=== PATIENT | male | born 1965 | race Caucasian/White ===

== ENCOUNTER 2022-02-06 08:37 | Inpatient (IN) | payer MEDICARE, MEDICAID ==
[~2022-02-06] VITALS: Ht 175.3 cm; Wt 82.6 kg
[~2022-02-06 08:37] MED LIST: CLAR10 PO; FLUO40CA8 PO; RISP2 PO
[2022-02-06] MEDS ORDERED: PIPERACILLIN/TAZ 3.375G PREMIX 50 ML IV ONE (08:45)
[2022-02-06] MEDS ORDERED: VANCOMYCIN 1G PREMIX 200 ML IV ONE (08:45)
[2022-02-06] MEDS ORDERED: SODIUM CHLORIDE 0.9% 1000ML BAG (SEPSIS BOLUS) IV ONE (08:45)
[2022-02-06] MEDS ORDERED: DILTIAZEM HCL 60MG TABLET PO ONE (09:15)
[2022-02-06] MEDS ORDERED: DILTIAZEM HCL 5MG/ML 5ML VIAL IV ONE (09:15)
[2022-02-06 09:21] LABS: BASOPHILS % 0.4 % (0.0-2.0); EOSINOPHILS % 0.1 % (0.0-5.0); HEMATOCRIT. 53.9 % (42.0-52.0); HEMOGLOBIN. 16.6 g/dL (14.0-18.0); LYMPHOCYTES % 10.5 % (20.0-50.0); MEAN CORPUSCULAR HEMOGLOBIN 27.7 pg (28.0-32.0); MEAN CORPUSCULAR VOLUME 90.1 fL (80.0-94.0); PLATELET 148 x1000/uL (130-400); RED BLOOD CELL COUNT 5.98 mill/uL (4.7-6.1); RED CELL DISTRIBUTION WIDTH 16.3 % (11.6-14.6)
[2022-02-06 09:31] LABS: INR 1.7; PROTHROMBIN TIME 17.7 sec (9.6-11.0)
[2022-02-06] MEDS ORDERED: AMIODARONE HCL 50MG/ML 3ML VIAL IV ONE (09:45)
[2022-02-06 09:49] LABS: CHLORIDE 101 mEq/L (98-107)
[2022-02-06 10:27] LABS: CLARITY URINE TURBID (CLEAR); COLOR URINE DARK YELLOW (YELLOW); KETONES URINE TRACE (NEGATIVE); LEUKOCYTE ESTERASE URINE TRACE (NEGATIVE); NITRITE URINE NEGATIVE (NEGATIVE); OCCULT BLOOD URINE NEGATIVE (NEGATIVE); PH URINE 5.5 (4.5-8.0); PROTEIN URINE 2+ (NEGATIVE); SPECIFIC GRAVITY URINE 1.033 (1.005-1.030)
[2022-02-06] MEDS ORDERED: DILTIAZEM HCL 125 MG in DEXT 5% WATER 100 ML IV ONE (10:30)
[2022-02-06] MEDS ORDERED: DILTIAZEM HCL 125MG in DEXTROSE 5% WATER 125ML IV PRN (10:45)
[2022-02-06] MEDS ORDERED: IOHEXOL-350 100 ML BOTTLE ONE (15:22)
[2022-02-06] MEDS ORDERED: ACETAMINOPHEN 325MG TABLET PO PRN (15:45)
[2022-02-06] MEDS ORDERED: DIGOXIN 500MCG/2ML AMP IV NR (15:45)
[2022-02-06] MEDS ORDERED: CLONIDINE 0.1MG TABLET PO PRN (15:45)
[2022-02-06] MEDS ORDERED: ONDANSETRON HCL 4MG/2ML INJ IV PRN (15:45)
[2022-02-06] MEDS ORDERED: DILTIAZEM HCL 125 MG in DEXT 5% WATER 100 ML IV PRN (16:00)
[2022-02-06] MEDS ORDERED: HEPARIN 80 UNITS/KG BOLUS IV NR (16:15)
[2022-02-06] MEDS ORDERED: HEPARIN 25,000 UNITS PREMIX 250 ML IV SCH (17:00)
[2022-02-06 17:24] LABS: BG BASE EXCESS 2.5 mmol/L (-2.0-2.0); BG CARBOXYHEMOGLOBIN 1.9 % (0.5-1.5); BG DEOXYHEMOGLOBIN 2.7 % (0.0-5.0); BG FRACTION INSPIRED OXYGEN 100; BG HCO3 ACT 29.6 mmol/L (22.0-26.0); BG METHEMOGLOBIN 0.4 % (0.0-1.5); BG OXYGEN SATURATION 97.2 % (92.0-98.5); BG PCO2 55.3 mmHg (35.0-45.0); BG PH 7.347 (7.350-7.450); BG SAMPLE SITE RIGHT RADIAL; BG TOTAL HEMOGLOBIN 16.4 g/dL (12.0-18.0); BG VENT MODE VENT - AC
[2022-02-06] MEDS ORDERED: LORAZEPAM 2MG/ML CPJ IV NR (18:30)
[2022-02-06] MEDS ORDERED: PROPOFOL 10MG/ML 100ML 100 ML IV PRN (18:38)
[2022-02-06] MEDS ORDERED: ZOLPIDEM TARTRATE 5MG TABLET PO PRN (20:00)
[2022-02-06] MEDS: FENTANYL 2500MCG/250ML PMX 250 ML IV PRN (20:35)
[2022-02-06] MEDS: METOPROLOL TARTRATE 50MG TABLET PO SCH (21:00)
[2022-02-06] MEDS: RISPERIDONE 1MG TABLET PO SCH (21:00)
[2022-02-06] MEDS: FLUOXETINE HCL 20MG CAPSULE PO SCH (21:00)
[2022-02-06] MEDS: SODIUM CHLORIDE 0.9% INJ 3ML FLUSH IVF SCH (21:53)
[2022-02-07] VITALS (64 sets, daily range): BP systolic 68–135; BP diastolic 37–100
[2022-02-07] MEDS ORDERED: HEPARIN BOLUS PRN aPTT <36 IV
[2022-02-07] MEDS ORDERED: HEPARIN BOLUS PRN aPTT 37-44 IV
[2022-02-07] MEDS: ENOXAPARIN 100MG/ML SYR SUBCUT SCH ×2 (01:23→14:11)
[2022-02-07 04:59] LABS: BASOPHILS % 0.1 % (0.0-2.0); EOSINOPHILS % 0.2 % (0.0-5.0); HEMATOCRIT. 45.9 % (42.0-52.0); HEMOGLOBIN. 14.8 g/dL (14.0-18.0); LYMPHOCYTES % 9.9 % (20.0-50.0); MEAN CORPUSCULAR HEMOGLOBIN 28.5 pg (28.0-32.0); MEAN CORPUSCULAR VOLUME 88.1 fL (80.0-94.0); MEAN PLATELET VOLUME 9.4 fl (7.4-10.4); MONOCYTES % 8.5 % (2.0-8.0); NEUTROPHILS % 81.3 % (40.0-76.0); PLATELET 96 x1000/uL (130-400); RED BLOOD CELL COUNT 5.21 mill/uL (4.7-6.1); RED CELL DISTRIBUTION WIDTH 15.3 % (11.6-14.6)
[2022-02-07 05:05] LABS: CHLORIDE 101 mEq/L (98-107)
[2022-02-07 05:30] LABS: T4 FREE 1.22 ng/dL (0.76-1.46)
[2022-02-07] MEDS: SODIUM CHLORIDE 0.9% INJ 3ML FLUSH IVF SCH ×3 (06:03→22:00)
[2022-02-07] MEDS: FENTANYL 2500MCG/250ML PMX 250 ML IV PRN ×2 (08:19→19:24)
[2022-02-07 09:29] LABS: BG BASE EXCESS 5.6 mmol/L (-2.0-2.0); BG CARBOXYHEMOGLOBIN 1.1 % (0.5-1.5); BG DEOXYHEMOGLOBIN 0.8 % (0.0-5.0); BG FRACTION INSPIRED OXYGEN 100; BG HCO3 ACT 30.2 mmol/L (22.0-26.0); BG METHEMOGLOBIN 0.4 % (0.0-1.5); BG OXYGEN SATURATION 99.2 % (92.0-98.5); BG OXYHEMOGLOBIN 97.7 % (94.0-97.0); BG PCO2 43.7 mmHg (35.0-45.0); BG PH 7.458 (7.350-7.450); BG PO2 142.3 mmHg (75.0-100.0); BG SAMPLE SITE RIGHT RADIAL; BG TOTAL HEMOGLOBIN 15.2 g/dL (12.0-18.0); BG VENT MODE VENT - AC
[2022-02-07] MEDS: NICOTINE 21MG PATCH TD SCH (10:13)
[2022-02-07] MEDS: METOPROLOL TARTRATE 50MG TABLET PO SCH ×2 (10:14→21:00)
[2022-02-07] MEDS: PANTOPRAZOLE SODIUM 40 MG/VIAL IV SCH (10:16)
[2022-02-07] MEDS: LEVOFLOXACIN 500MG PREMIX 100 ML IV SCH (14:04)
[2022-02-07] MEDS: METRONIDAZOLE 500MG TABLET PO SCH ×2 (14:10→23:11)
[2022-02-07 15:10] LABS: HEPATITIS B SURFACE AB 28.6 mIU/mL
[2022-02-07 15:20] LABS: HEPATITIS B SURFACE ANTIGEN NEGATIVE
[2022-02-07] MEDS: FLUOXETINE HCL 20MG CAPSULE PO SCH (21:00)
[2022-02-07] MEDS: RISPERIDONE 1MG TABLET PO SCH (21:00)
[2022-02-07] MEDS: PHENYLEPHRINE 100 MG in DEXT 5% WATER 240 ML IV PRN (21:34)
[2022-02-07 21:46] LABS: BG BASE EXCESS 4.5 mmol/L (-2.0-2.0); BG CARBOXYHEMOGLOBIN 0.9 % (0.5-1.5); BG DEOXYHEMOGLOBIN 17.9 % (0.0-5.0); BG FRACTION INSPIRED OXYGEN 70; BG HCO3 ACT 30.9 mmol/L (22.0-26.0); BG METHEMOGLOBIN 0.4 % (0.0-1.5); BG OXYGEN SATURATION 81.9 % (92.0-98.5); BG OXYHEMOGLOBIN 80.8 % (94.0-97.0); BG PCO2 52.5 mmHg (35.0-45.0); BG PH 7.388 (7.350-7.450); BG PO2 47.3 mmHg (75.0-100.0); BG SAMPLE SITE RIGHT RADIAL; BG TOTAL HEMOGLOBIN 15.4 g/dL (12.0-18.0); BG VENT MODE VENT - AC
[2022-02-07 23:13] LABS: BG BASE EXCESS 2.5 mmol/L (-2.0-2.0); BG FRACTION INSPIRED OXYGEN 70; BG HCO3 ACT 28.2 mmol/L (22.0-26.0); BG METHEMOGLOBIN 0.4 % (0.0-1.5); BG OXYHEMOGLOBIN 97.6 % (94.0-97.0); BG PCO2 46.8 mmHg (35.0-45.0); BG PH 7.398 (7.350-7.450); BG PO2 143.5 mmHg (75.0-100.0); BG SAMPLE SITE RIGHT RADIAL; BG TOTAL HEMOGLOBIN 17.1 g/dL (12.0-18.0); BG VENT MODE VENT - AC
[2022-02-08] VITALS (96 sets, daily range): BP systolic 78–129; BP diastolic 40–92
[2022-02-08] MEDS: ENOXAPARIN 100MG/ML SYR SUBCUT SCH ×2 (01:08→13:01)
[2022-02-08] MEDS: PROPOFOL 10MG/ML 100ML 100 ML IV PRN ×2 (04:00→13:03)
[2022-02-08 05:20] LABS: BASOPHILS % 0.1 % (0.0-2.0); EOSINOPHILS % 0.4 % (0.0-5.0); HEMATOCRIT. 48.3 % (42.0-52.0); HEMOGLOBIN. 15.5 g/dL (14.0-18.0); LYMPHOCYTES % 9.1 % (20.0-50.0); MEAN CORPUSCULAR HEMOGLOBIN 27.9 pg (28.0-32.0); MEAN PLATELET VOLUME 10.4 fl (7.4-10.4); MONOCYTES % 7.2 % (2.0-8.0); NEUTROPHILS % 83.2 % (40.0-76.0); PLATELET 118 x1000/uL (130-400); RED BLOOD CELL COUNT 5.55 mill/uL (4.7-6.1); RED CELL DISTRIBUTION WIDTH 15.4 % (11.6-14.6)
[2022-02-08 05:36] LABS: CHLORIDE 101 mEq/L (98-107)
[2022-02-08] MEDS: SODIUM CHLORIDE 0.9% INJ 3ML FLUSH IVF SCH ×3 (06:00→21:28)
[2022-02-08] MEDS: METRONIDAZOLE 500MG TABLET PO SCH ×3 (06:03→21:28)
[2022-02-08] MEDS: METOPROLOL TARTRATE 50MG TABLET PO SCH (08:39)
[2022-02-08] MEDS: PANTOPRAZOLE SODIUM 40 MG/VIAL IV SCH (08:39)
[2022-02-08] MEDS: NICOTINE 21MG PATCH TD SCH (08:39)
[2022-02-08 08:56] LABS: BG BASE EXCESS 4.6 mmol/L (-2.0-2.0); BG CARBOXYHEMOGLOBIN 1.3 % (0.5-1.5); BG DEOXYHEMOGLOBIN 2.9 % (0.0-5.0); BG FRACTION INSPIRED OXYGEN 50; BG HCO3 ACT 28.9 mmol/L (22.0-26.0); BG METHEMOGLOBIN 0.4 % (0.0-1.5); BG OXYHEMOGLOBIN 95.4 % (94.0-97.0); BG PCO2 41.8 mmHg (35.0-45.0); BG PH 7.458 (7.350-7.450); BG SAMPLE SITE RIGHT RADIAL; BG TOTAL HEMOGLOBIN 16.6 g/dL (12.0-18.0); BG VENT MODE VENT - AC
[2022-02-08] MEDS: LEVOFLOXACIN 500MG PREMIX 100 ML IV SCH (13:01)
[2022-02-08] MEDS: MIDAZOLAM HCL 100 MG in SODIUM CHLORIDE 0.9% 80 ML IV PRN (16:18)
[2022-02-08] MEDS: PHENYLEPHRINE 100 MG in DEXT 5% WATER 240 ML IV PRN (18:13)
[2022-02-08] MEDS: RISPERIDONE 1MG TABLET PO SCH (21:28)
[2022-02-08] MEDS: FLUOXETINE HCL 20MG CAPSULE PO SCH (21:55)
[2022-02-09] VITALS (95 sets, daily range): BP systolic 75–127; BP diastolic 40–89
[2022-02-09] MEDS: ENOXAPARIN 100MG/ML SYR SUBCUT SCH (00:02)
[2022-02-09 06:05] LABS: CHLORIDE 104 mEq/L (98-107)
[2022-02-09] MEDS: SODIUM CHLORIDE 0.9% INJ 3ML FLUSH IVF SCH ×2 (06:52→13:19)
[2022-02-09] MEDS: METRONIDAZOLE 500MG TABLET PO SCH ×3 (06:52→22:02)
[2022-02-09] MEDS: MIDAZOLAM HCL 100 MG in SODIUM CHLORIDE 0.9% 80 ML IV PRN (07:23)
[2022-02-09 08:01] LABS: INR 1.2
[2022-02-09 08:16] LABS: BG BASE EXCESS 8.3 mmol/L (-2.0-2.0); BG CARBOXYHEMOGLOBIN 1.8 % (0.5-1.5); BG DEOXYHEMOGLOBIN 3.7 % (0.0-5.0); BG HCO3 ACT 33.3 mmol/L (22.0-26.0); BG METHEMOGLOBIN 0.4 % (0.0-1.5); BG OXYGEN SATURATION 96.2 % (92.0-98.5); BG OXYHEMOGLOBIN 94.1 % (94.0-97.0); BG PCO2 46.6 mmHg (35.0-45.0); BG PH 7.472 (7.350-7.450); BG PO2 77.8 mmHg (75.0-100.0); BG SAMPLE SITE RIGHT RADIAL; BG TOTAL HEMOGLOBIN 16.3 g/dL (12.0-18.0); BG VENT MODE VENT - AC
[2022-02-09 08:17] LABS: BASOPHILS % 0.2 % (0.0-2.0); HEMATOCRIT. 47.6 % (42.0-52.0); HEMOGLOBIN. 15.2 g/dL (14.0-18.0); LYMPHOCYTES % 12.7 % (20.0-50.0); MEAN CORPUSCULAR HEMOGLOBIN 27.8 pg (28.0-32.0); MEAN CORPUSCULAR VOLUME 86.9 fL (80.0-94.0); MEAN PLATELET VOLUME 10.2 fl (7.4-10.4); MONOCYTES % 8.4 % (2.0-8.0); NEUTROPHILS % 77.7 % (40.0-76.0); PLATELET 88 x1000/uL (130-400); RED BLOOD CELL COUNT 5.47 mill/uL (4.7-6.1); RED CELL DISTRIBUTION WIDTH 15.7 % (11.6-14.6)
[2022-02-09] MEDS: FUROSEMIDE 40MG/4ML VIAL IVP SCH (08:38)
[2022-02-09] MEDS: PANTOPRAZOLE SODIUM 40 MG/VIAL IV SCH (08:38)
[2022-02-09] MEDS: NICOTINE 21MG PATCH TD SCH (08:38)
[2022-02-09] MEDS: LEVOFLOXACIN 500MG PREMIX 100 ML IV SCH (13:19)
[2022-02-09] MEDS: PHENYLEPHRINE 100 MG in DEXT 5% WATER 240 ML IV PRN ×2 (13:39→23:58)
[2022-02-09] MEDS ORDERED: MIDODRINE HCL 5MG TABLET PO NR (19:30)
[2022-02-09] MEDS: DILTIAZEM HCL 125 MG in DEXT 5% WATER 100 ML IV PRN (20:09)
[2022-02-09] MEDS: RISPERIDONE 1MG TABLET PO SCH (22:03)
[2022-02-09] MEDS: FLUOXETINE HCL 20MG CAPSULE PO SCH (22:03)
[2022-02-10] VITALS (91 sets, daily range): BP systolic 40–146; BP diastolic 27–81
[2022-02-10 05:35] LABS: BASOPHILS % 0.2 % (0.0-2.0); EOSINOPHILS % 0.6 % (0.0-5.0); HEMATOCRIT. 48.2 % (42.0-52.0); HEMOGLOBIN. 15.6 g/dL (14.0-18.0); LYMPHOCYTES % 7.5 % (20.0-50.0); MEAN CORPUSCULAR VOLUME 86.8 fL (80.0-94.0); MEAN PLATELET VOLUME 10.3 fl (7.4-10.4); MONOCYTES % 10.8 % (2.0-8.0); NEUTROPHILS % 80.9 % (40.0-76.0); PLATELET 90 x1000/uL (130-400); RED BLOOD CELL COUNT 5.55 mill/uL (4.7-6.1); RED CELL DISTRIBUTION WIDTH 15.5 % (11.6-14.6)
[2022-02-10] MEDS: PHENYLEPHRINE 100 MG in DEXT 5% WATER 240 ML IV PRN ×2 (06:00→16:20)
[2022-02-10] MEDS: METRONIDAZOLE 500MG TABLET PO SCH ×3 (06:00→21:47)
[2022-02-10 08:59] LABS: BG BASE EXCESS 7.7 mmol/L (-2.0-2.0); BG CARBOXYHEMOGLOBIN 1.7 % (0.5-1.5); BG DEOXYHEMOGLOBIN 4.8 % (0.0-5.0); BG FRACTION INSPIRED OXYGEN 40; BG HCO3 ACT 32.8 mmol/L (22.0-26.0); BG METHEMOGLOBIN 0.3 % (0.0-1.5); BG OXYGEN SATURATION 95.1 % (92.0-98.5); BG OXYHEMOGLOBIN 93.2 % (94.0-97.0); BG PH 7.462 (7.350-7.450); BG SAMPLE SITE LEFT RADIAL; BG TOTAL HEMOGLOBIN 16.3 g/dL (12.0-18.0); BG VENT MODE VENT - AC
[2022-02-10] MEDS: FUROSEMIDE 40MG/4ML VIAL IVP SCH (09:53)
[2022-02-10] MEDS: PANTOPRAZOLE SODIUM 40 MG/VIAL IV SCH (09:53)
[2022-02-10] MEDS: MIDODRINE HCL 5MG TABLET PO SCH ×3 (09:54→16:19)
[2022-02-10] MEDS: NICOTINE 21MG PATCH TD SCH (09:54)
[2022-02-10] MEDS: LEVOFLOXACIN 500MG PREMIX 100 ML IV SCH (14:38)
[2022-02-10 16:23] LABS: BG BASE EXCESS 6.7 mmol/L (-2.0-2.0); BG CARBOXYHEMOGLOBIN 1.1 % (0.5-1.5); BG DEOXYHEMOGLOBIN 9.2 % (0.0-5.0); BG FRACTION INSPIRED OXYGEN 40; BG HCO3 ACT 34.1 mmol/L (22.0-26.0); BG METHEMOGLOBIN 0.4 % (0.0-1.5); BG OXYGEN SATURATION 90.7 % (92.0-98.5); BG OXYHEMOGLOBIN 89.3 % (94.0-97.0); BG PCO2 59.3 mmHg (35.0-45.0); BG PH 7.377 (7.350-7.450); BG PO2 61.2 mmHg (75.0-100.0); BG SAMPLE SITE LEFT RADIAL; BG TOTAL HEMOGLOBIN 15.9 g/dL (12.0-18.0); BG VENT MODE VENT - SIMV
[2022-02-10] MEDS: FLUOXETINE HCL 10 MG CAPSULE PO SCH (20:57)
[2022-02-10] MEDS: RISPERIDONE 1MG TABLET PO SCH (20:58)
[2022-02-10] MEDS: FENTANYL 2500MCG/250ML PMX 250 ML IV PRN (21:00)
[2022-02-11] VITALS (95 sets, daily range): BP systolic 82–147; BP diastolic 46–100
[2022-02-11] MEDS: MIDAZOLAM HCL 100 MG in SODIUM CHLORIDE 0.9% 80 ML IV PRN (04:22)
[2022-02-11 06:18] LABS: BASOPHILS % 0.3 % (0.0-2.0); EOSINOPHILS % 0.7 % (0.0-5.0); HEMATOCRIT. 43.9 % (42.0-52.0); HEMOGLOBIN. 14.2 g/dL (14.0-18.0); MEAN CORPUSCULAR HEMOGLOBIN 27.8 pg (28.0-32.0); MEAN CORPUSCULAR VOLUME 86.1 fL (80.0-94.0); MEAN PLATELET VOLUME 10.9 fl (7.4-10.4); MONOCYTES % 10.1 % (2.0-8.0); NEUTROPHILS % 80.9 % (40.0-76.0); PLATELET 93 x1000/uL (130-400); RED CELL DISTRIBUTION WIDTH 15.4 % (11.6-14.6)
[2022-02-11] MEDS: PHENYLEPHRINE 100 MG in DEXT 5% WATER 240 ML IV PRN ×2 (06:36→21:13)
[2022-02-11] MEDS: METRONIDAZOLE 500MG TABLET PO SCH ×3 (06:36→21:12)
[2022-02-11 06:57] LABS: CHLORIDE 104 mEq/L (98-107)
[2022-02-11] MEDS: FUROSEMIDE 40MG/4ML VIAL IVP SCH (08:13)
[2022-02-11] MEDS: NICOTINE 21MG PATCH TD SCH (08:14)
[2022-02-11] MEDS: MIDODRINE HCL 5MG TABLET PO SCH ×3 (08:14→18:41)
[2022-02-11] MEDS: PANTOPRAZOLE SODIUM 40 MG/VIAL IV SCH (08:38)
[2022-02-11] MEDS ORDERED: BISACODYL 10MG SUPP PR PRN (13:15)
[2022-02-11] MEDS: LEVOFLOXACIN 500MG PREMIX 100 ML IV SCH (13:29)
[2022-02-11] MEDS: POLYETHYLENE GLYCOL 3350 (17GM) 1 DOSE PACK PO SCH (13:31)
[2022-02-11] MEDS ORDERED: LACTULOSE 20G/30ML UDC PO PRN (21:00)
[2022-02-11] MEDS: FLUOXETINE HCL 10 MG CAPSULE PO SCH (21:12)
[2022-02-11] MEDS: RISPERIDONE 1MG TABLET PO SCH (21:13)
[2022-02-11] MEDS ORDERED: FENTANYL 2500MCG/250ML PMX 250 ML IV ONE (22:30)
[2022-02-11] MEDS: LORAZEPAM 2MG/ML CPJ IV PRN (22:36)
[2022-02-11] MEDS ORDERED: FENTANYL CITRATE 2,500 MCG in SODIUM CHLORIDE 0.9% 200 ML IV PRN (22:45)
[2022-02-12] VITALS (86 sets, daily range): BP systolic 80–132; BP diastolic 47–97
[2022-02-12] MEDS: METRONIDAZOLE 500MG TABLET PO SCH ×2 (05:35→13:09)
[2022-02-12] MEDS: LORAZEPAM 2MG/ML CPJ IV PRN (06:46)
[2022-02-12 08:37] LABS: BG BASE EXCESS 8.2 mmol/L (-2.0-2.0); BG CARBOXYHEMOGLOBIN 1.9 % (0.5-1.5); BG DEOXYHEMOGLOBIN 1.2 % (0.0-5.0); BG FRACTION INSPIRED OXYGEN 40; BG HCO3 ACT 34.1 mmol/L (22.0-26.0); BG METHEMOGLOBIN 0.3 % (0.0-1.5); BG OXYGEN SATURATION 98.8 % (92.0-98.5); BG OXYHEMOGLOBIN 96.6 % (94.0-97.0); BG PCO2 51.5 mmHg (35.0-45.0); BG PH 7.439 (7.350-7.450); BG PO2 108.1 mmHg (75.0-100.0); BG SAMPLE SITE RIGHT RADIAL; BG TOTAL HEMOGLOBIN 15.4 g/dL (12.0-18.0); BG VENT MODE VENT - SIMV
[2022-02-12] MEDS: PANTOPRAZOLE SODIUM 40 MG/VIAL IV SCH (08:39)
[2022-02-12] MEDS: FUROSEMIDE 40MG/4ML VIAL IVP SCH (08:39)
[2022-02-12] MEDS: POLYETHYLENE GLYCOL 3350 (17GM) 1 DOSE PACK PO SCH (08:40)
[2022-02-12] MEDS: MIDODRINE HCL 5MG TABLET PO SCH ×3 (08:40→16:52)
[2022-02-12] MEDS: NICOTINE 21MG PATCH TD SCH (08:40)
[2022-02-12 09:49] LABS: CHLORIDE 102 mEq/L (98-107)
[2022-02-12 09:57] LABS: BASOPHILS % 0.9 % (0.0-2.0); EOSINOPHILS % 2.2 % (0.0-5.0); HEMATOCRIT. 48.8 % (42.0-52.0); HEMOGLOBIN. 15.8 g/dL (14.0-18.0); LYMPHOCYTES % 13.9 % (20.0-50.0); MEAN CORPUSCULAR HEMOGLOBIN 27.8 pg (28.0-32.0); MEAN CORPUSCULAR VOLUME 85.8 fL (80.0-94.0); MEAN PLATELET VOLUME 10.1 fl (7.4-10.4); MONOCYTES % 10.9 % (2.0-8.0); NEUTROPHILS % 72.1 % (40.0-76.0); PLATELET 116 x1000/uL (130-400); RED BLOOD CELL COUNT 5.69 mill/uL (4.7-6.1); RED CELL DISTRIBUTION WIDTH 15.6 % (11.6-14.6)
[2022-02-12] MEDS: DILTIAZEM HCL 125 MG in DEXT 5% WATER 100 ML IV PRN (11:58)
[2022-02-12 13:05] LABS: BG BASE EXCESS 3.8 mmol/L (-2.0-2.0); BG DEOXYHEMOGLOBIN 7.3 % (0.0-5.0); BG FRACTION INSPIRED OXYGEN 40; BG HCO3 ACT 30.8 mmol/L (22.0-26.0); BG METHEMOGLOBIN 0.3 % (0.0-1.5); BG OXYGEN SATURATION 92.6 % (92.0-98.5); BG OXYHEMOGLOBIN 91.4 % (94.0-97.0); BG PCO2 54.6 mmHg (35.0-45.0); BG PH 7.369 (7.350-7.450); BG PO2 66.8 mmHg (75.0-100.0); BG SAMPLE SITE LEFT RADIAL; BG TOTAL HEMOGLOBIN 16.6 g/dL (12.0-18.0); BG TOTAL RESPIRATORY RATE 10 b/min; BG VENT MODE VENT - CPAP
[2022-02-12] MEDS: PHENYLEPHRINE 100 MG in DEXT 5% WATER 240 ML IV PRN (14:26)
[2022-02-12 14:48] LABS: CHLORIDE 100 mEq/L (98-107)
[2022-02-12] MEDS: FLUOXETINE HCL 10 MG CAPSULE PO SCH (20:32)
[2022-02-12] MEDS: RISPERIDONE 1MG TABLET PO SCH (20:32)
[2022-02-12] MEDS: DILTIAZEM HCL 5MG/ML 5ML VIAL IV PRN (22:44)
[2022-02-13] VITALS (96 sets, daily range): BP systolic 90–144; BP diastolic 12–96
[2022-02-13] MEDS: PHENYLEPHRINE 100 MG in DEXT 5% WATER 240 ML IV PRN ×2 (01:52→12:16)
[2022-02-13] MEDS: LORAZEPAM 2MG/ML CPJ IV PRN ×2 (04:34→17:47)
[2022-02-13 04:55] LABS: BASOPHILS % 0.3 % (0.0-2.0); EOSINOPHILS % 1.9 % (0.0-5.0); HEMOGLOBIN. 15.4 g/dL (14.0-18.0); LYMPHOCYTES % 12.4 % (20.0-50.0); MEAN CORPUSCULAR HEMOGLOBIN 27.8 pg (28.0-32.0); MEAN CORPUSCULAR VOLUME 88.5 fL (80.0-94.0); MONOCYTES % 10.2 % (2.0-8.0); NEUTROPHILS % 75.2 % (40.0-76.0); PLATELET 115 x1000/uL (130-400); RED BLOOD CELL COUNT 5.54 mill/uL (4.7-6.1); RED CELL DISTRIBUTION WIDTH 15.6 % (11.6-14.6)
[2022-02-13 05:19] LABS: CHLORIDE 96 mEq/L (98-107)
[2022-02-13] MEDS: FUROSEMIDE 40MG/4ML VIAL IVP SCH (08:45)
[2022-02-13] MEDS: PANTOPRAZOLE SODIUM 40 MG/VIAL IV SCH (08:45)
[2022-02-13] MEDS: NICOTINE 21MG PATCH TD SCH (08:46)
[2022-02-13] MEDS: MIDODRINE HCL 5MG TABLET PO SCH ×3 (09:00→16:26)
[2022-02-13] MEDS: POLYETHYLENE GLYCOL 3350 (17GM) 1 DOSE PACK PO SCH (09:00)
[2022-02-13 11:05] LABS: BG BASE EXCESS 6.8 mmol/L (-2.0-2.0); BG CARBOXYHEMOGLOBIN 0.9 % (0.5-1.5); BG HCO3 ACT 35.5 mmol/L (22.0-26.0); BG METHEMOGLOBIN 0.3 % (0.0-1.5); BG OXYGEN SATURATION 90.9 % (92.0-98.5); BG OXYHEMOGLOBIN 89.8 % (94.0-97.0); BG PCO2 67.9 mmHg (35.0-45.0); BG PH 7.336 (7.350-7.450); BG PO2 58.6 mmHg (75.0-100.0); BG SAMPLE SITE RIGHT RADIAL; BG TOTAL HEMOGLOBIN 15.9 g/dL (12.0-18.0); BG VENT MODE COOL AEROSOL
[2022-02-13] MEDS: APIXABAN 5 MG TABLET PO SCH (16:25)
[2022-02-13] MEDS: METHYLPREDNISOLONE SOD SUCC 40 MG/ML VIAL IV SCH (17:46)
[2022-02-13] MEDS: DILTIAZEM HCL 5MG/ML 5ML VIAL IV PRN (17:46)
[2022-02-13] MEDS: DILTIAZEM HCL 125 MG in DEXT 5% WATER 100 ML IV PRN (18:28)
[2022-02-13 18:35] LABS: BG BASE EXCESS 11.3 mmol/L (-2.0-2.0); BG CARBOXYHEMOGLOBIN 1.2 % (0.5-1.5); BG DEOXYHEMOGLOBIN 2.3 % (0.0-5.0); BG FRACTION INSPIRED OXYGEN 60; BG HCO3 ACT 39.5 mmol/L (22.0-26.0); BG METHEMOGLOBIN 0.3 % (0.0-1.5); BG OXYGEN SATURATION 97.7 % (92.0-98.5); BG OXYHEMOGLOBIN 96.2 % (94.0-97.0); BG PCO2 67.4 mmHg (35.0-45.0); BG PH 7.386 (7.350-7.450); BG PO2 93.5 mmHg (75.0-100.0); BG SAMPLE SITE RIGHT RADIAL; BG TOTAL HEMOGLOBIN 15.2 g/dL (12.0-18.0); BG TOTAL RESPIRATORY RATE 18 b/min; BG VENT MODE MASK - BIPAP
[2022-02-13] MEDS: RISPERIDONE 1MG TABLET PO SCH (20:00)
[2022-02-13] MEDS: FLUOXETINE HCL 10 MG CAPSULE PO SCH (20:00)
[2022-02-13] MEDS: DIPHENHYDRAMINE 50MG/ML VIAL IV PRN (22:44)
[2022-02-14] VITALS (93 sets, daily range): BP systolic 93–149; BP diastolic 33–111
[2022-02-14] MEDS: LORAZEPAM 2MG/ML CPJ IV PRN ×4 (00:23→18:21)
[2022-02-14] MEDS: METHYLPREDNISOLONE SOD SUCC 40 MG/ML VIAL IV SCH ×3 (00:30→17:07)
[2022-02-14 05:32] LABS: HEMATOCRIT. 43.4 % (42.0-52.0); HEMOGLOBIN. 13.9 g/dL (14.0-18.0); MEAN CORPUSCULAR HEMOGLOBIN 28.1 pg (28.0-32.0); MEAN CORPUSCULAR VOLUME 87.6 fL (80.0-94.0); MEAN PLATELET VOLUME 9.6 fl (7.4-10.4); PLATELET 89 x1000/uL (130-400); RED BLOOD CELL COUNT 4.95 mill/uL (4.7-6.1); RED CELL DISTRIBUTION WIDTH 15.3 % (11.6-14.6)
[2022-02-14 07:27] LABS: BG BASE EXCESS 10.4 mmol/L (-2.0-2.0); BG DEOXYHEMOGLOBIN 4.8 % (0.0-5.0); BG METHEMOGLOBIN 0.3 % (0.0-1.5); BG OXYGEN SATURATION 95.1 % (92.0-98.5); BG OXYHEMOGLOBIN 93.9 % (94.0-97.0); BG PCO2 63.6 mmHg (35.0-45.0); BG PH 7.394 (7.350-7.450); BG PO2 72.2 mmHg (75.0-100.0); BG SAMPLE SITE RIGHT RADIAL; BG TOTAL HEMOGLOBIN 14.5 g/dL (12.0-18.0); BG VENT MODE MASK - BIPAP
[2022-02-14] MEDS: FUROSEMIDE 40MG/4ML VIAL IVP SCH (08:08)
[2022-02-14] MEDS: PANTOPRAZOLE SODIUM 40 MG/VIAL IV SCH (08:08)
[2022-02-14] MEDS: POLYETHYLENE GLYCOL 3350 (17GM) 1 DOSE PACK PO SCH (08:09)
[2022-02-14] MEDS: NICOTINE 21MG PATCH TD SCH (08:09)
[2022-02-14] MEDS: APIXABAN 5 MG TABLET PO SCH (08:09)
[2022-02-14] MEDS: MIDODRINE HCL 5MG TABLET PO SCH ×3 (08:10→16:16)
[2022-02-14 10:26] LABS: PLATELET ESTIMATE DECREASED
[2022-02-14] MEDS: DILTIAZEM HCL 30MG TABLET PO SCH ×2 (13:24→21:05)
[2022-02-14] MEDS ORDERED: ACETAZOLAMIDE 500MG ER CAPSULE PO NR (15:45)
[2022-02-14 16:16] LABS: BG BASE EXCESS 13.7 mmol/L (-2.0-2.0); BG CARBOXYHEMOGLOBIN 0.5 % (0.5-1.5); BG DEOXYHEMOGLOBIN 5.3 % (0.0-5.0); BG METHEMOGLOBIN 0.3 % (0.0-1.5); BG OXYGEN SATURATION 94.7 % (92.0-98.5); BG OXYHEMOGLOBIN 93.9 % (94.0-97.0); BG PH 7.371 (7.350-7.450); BG SAMPLE SITE RIGHT RADIAL; BG VENT MODE MASK - BIPAP
[2022-02-14] MEDS: DILTIAZEM HCL 5MG/ML 5ML VIAL IV PRN (18:56)
[2022-02-14] MEDS: FLUOXETINE HCL 10 MG CAPSULE PO SCH (21:05)
[2022-02-14] MEDS: RISPERIDONE 1MG TABLET PO SCH (21:06)
[2022-02-14] MEDS: IPRATROPIUM/ALBUTEROL 0.5-3(2.5)MG/3ML NEB HHN SCH (21:23)
[2022-02-15] VITALS (82 sets, daily range): BP systolic 75–171; BP diastolic 41–94
[2022-02-15] MEDS: METHYLPREDNISOLONE SOD SUCC 40 MG/ML VIAL IV SCH ×2 (00:33→09:43)
[2022-02-15] MEDS: DIPHENHYDRAMINE 50MG/ML VIAL IV PRN (00:34)
[2022-02-15] MEDS: IPRATROPIUM/ALBUTEROL 0.5-3(2.5)MG/3ML NEB HHN SCH ×4 (01:53→13:10)
[2022-02-15] MEDS: LORAZEPAM 2MG/ML CPJ IV PRN ×3 (02:19→15:12)
[2022-02-15] MEDS: DILTIAZEM HCL 30MG TABLET PO SCH ×3 (05:00→21:04)
[2022-02-15] MEDS ORDERED: RISPERIDONE 1MG TABLET PO SCH (09:00)
[2022-02-15 09:12] LABS: HEMATOCRIT. 45.9 % (42.0-52.0); HEMOGLOBIN. 14.8 g/dL (14.0-18.0); MEAN CORPUSCULAR HEMOGLOBIN 27.8 pg (28.0-32.0); MEAN CORPUSCULAR VOLUME 86.2 fL (80.0-94.0); MEAN PLATELET VOLUME 9.2 fl (7.4-10.4); PLATELET 118 x1000/uL (130-400); RED BLOOD CELL COUNT 5.32 mill/uL (4.7-6.1); RED CELL DISTRIBUTION WIDTH 15.6 % (11.6-14.6)
[2022-02-15] MEDS: POLYETHYLENE GLYCOL 3350 (17GM) 1 DOSE PACK PO SCH (09:37)
[2022-02-15] MEDS: PANTOPRAZOLE SODIUM 40 MG/VIAL IV SCH (09:37)
[2022-02-15] MEDS: FUROSEMIDE 40MG/4ML VIAL IVP SCH (09:37)
[2022-02-15] MEDS: NICOTINE 21MG PATCH TD SCH (09:37)
[2022-02-15] MEDS: MIDODRINE HCL 5MG TABLET PO SCH ×3 (09:38→18:30)
[2022-02-15] MEDS: DILTIAZEM HCL 5MG/ML 5ML VIAL IV PRN (09:43)
[2022-02-15 11:10] LABS: CHLORIDE 99 mEq/L (98-107)
[2022-02-15] MEDS: DILTIAZEM HCL 125 MG in DEXT 5% WATER 100 ML IV SCH (11:21)
[2022-02-15 11:26] LABS: BG BASE EXCESS 10.7 mmol/L (-2.0-2.0); BG CARBOXYHEMOGLOBIN 0.9 % (0.5-1.5); BG DEOXYHEMOGLOBIN 9.3 % (0.0-5.0); BG HCO3 ACT 36.5 mmol/L (22.0-26.0); BG METHEMOGLOBIN 0.4 % (0.0-1.5); BG OXYGEN SATURATION 90.6 % (92.0-98.5); BG OXYHEMOGLOBIN 89.4 % (94.0-97.0); BG PH 7.464 (7.350-7.450); BG PO2 53.3 mmHg (75.0-100.0); BG SAMPLE SITE RIGHT RADIAL; BG TOTAL HEMOGLOBIN 14.9 g/dL (12.0-18.0)
[2022-02-15] MEDS ORDERED: ACETAZOLAMIDE SODIUM 500MG/VIAL IV NR (11:30)
[2022-02-15] MEDS ORDERED: ENOXAPARIN 100MG/ML SYR SUBCUT NR (12:00)
[2022-02-15] MEDS ORDERED: HALOPERIDOL LACTATE 5MG/ML VIAL IM PRN (12:45)
[2022-02-15 13:15] LABS: PLATELET ESTIMATE SLIGHTLY DECREASED
[2022-02-15] MEDS: FLUOXETINE HCL 10 MG CAPSULE PO SCH (21:03)
[2022-02-15] MEDS: RISPERIDONE 1MG TABLET PO SCH (21:04)
[2022-02-16] VITALS (53 sets, daily range): BP systolic 74–132; BP diastolic 42–93
[2022-02-16 04:36] LABS: HEMATOCRIT. 41.8 % (42.0-52.0); HEMOGLOBIN. 13.6 g/dL (14.0-18.0); MEAN CORPUSCULAR HEMOGLOBIN 28.2 pg (28.0-32.0); MEAN CORPUSCULAR VOLUME 86.8 fL (80.0-94.0); MEAN PLATELET VOLUME 9.4 fl (7.4-10.4); PLATELET 108 x1000/uL (130-400); RED BLOOD CELL COUNT 4.82 mill/uL (4.7-6.1); RED CELL DISTRIBUTION WIDTH 15.8 % (11.6-14.6)
[2022-02-16] MEDS: DILTIAZEM HCL 30MG TABLET PO SCH (05:15)
[2022-02-16 05:17] LABS: CHLORIDE 103 mEq/L (98-107)
[2022-02-16 07:58] LABS: BG BASE EXCESS 8.8 mmol/L (-2.0-2.0); BG DEOXYHEMOGLOBIN 10.7 % (0.0-5.0); BG HCO3 ACT 39.3 mmol/L (22.0-26.0); BG METHEMOGLOBIN 0.3 % (0.0-1.5); BG OXYGEN SATURATION 89.2 % (92.0-98.5); BG PCO2 84.3 mmHg (35.0-45.0); BG PH 7.286 (7.350-7.450); BG PO2 60.4 mmHg (75.0-100.0); BG SAMPLE SITE RIGHT RADIAL; BG TOTAL HEMOGLOBIN 14.9 g/dL (12.0-18.0); BG VENT MODE NASAL CANNULA
[2022-02-16] MEDS: POLYETHYLENE GLYCOL 3350 (17GM) 1 DOSE PACK PO SCH (09:00)
[2022-02-16] MEDS: RISPERIDONE 1MG TABLET PO SCH ×2 (09:00→21:08)
[2022-02-16] MEDS: PANTOPRAZOLE SODIUM 40 MG/VIAL IV SCH (09:00)
[2022-02-16] MEDS: FUROSEMIDE 40MG/4ML VIAL IVP SCH (09:00)
[2022-02-16] MEDS: NICOTINE 21MG PATCH TD SCH (09:00)
[2022-02-16 10:19] LABS: BG BASE EXCESS 10.2 mmol/L (-2.0-2.0); BG CARBOXYHEMOGLOBIN 0.6 % (0.5-1.5); BG DEOXYHEMOGLOBIN 8.3 % (0.0-5.0); BG HCO3 ACT 40.4 mmol/L (22.0-26.0); BG METHEMOGLOBIN 0.4 % (0.0-1.5); BG OXYGEN SATURATION 91.6 % (92.0-98.5); BG OXYHEMOGLOBIN 90.7 % (94.0-97.0); BG PCO2 81.1 mmHg (35.0-45.0); BG PH 7.315 (7.350-7.450); BG PO2 63.8 mmHg (75.0-100.0); BG SAMPLE SITE LEFT RADIAL; BG TOTAL HEMOGLOBIN 15.4 g/dL (12.0-18.0); BG VENT MODE MASK - BIPAP
[2022-02-16 10:51] LABS: PLATELET ESTIMATE DECREASED
[2022-02-16] MEDS: ENOXAPARIN 80MG/0.8ML SYR SUBCUT SCH ×2 (11:00→21:09)
[2022-02-16] MEDS: DILTIAZEM HCL 125 MG in DEXT 5% WATER 100 ML IV SCH (12:00)
[2022-02-16 12:20] LABS: BG BASE EXCESS 8.2 mmol/L (-2.0-2.0); BG CARBOXYHEMOGLOBIN 1.1 % (0.5-1.5); BG FRACTION INSPIRED OXYGEN 100; BG HCO3 ACT 39.3 mmol/L (22.0-26.0); BG METHEMOGLOBIN 0.4 % (0.0-1.5); BG OXYGEN SATURATION 94.9 % (92.0-98.5); BG OXYHEMOGLOBIN 93.5 % (94.0-97.0); BG PCO2 88.8 mmHg (35.0-45.0); BG PH 7.264 (7.350-7.450); BG PO2 80.6 mmHg (75.0-100.0); BG SAMPLE SITE RIGHT RADIAL; BG TOTAL HEMOGLOBIN 15.4 g/dL (12.0-18.0); BG VENT MODE MASK - BIPAP
[2022-02-16] MEDS ORDERED: METHYLPREDNISOLONE SOD SUCC 125 MG/2 ML VIAL IV NR (13:00)
[2022-02-16] MEDS: MIDODRINE HCL 2.5MG TABLET PO SCH ×2 (13:00→17:00)
[2022-02-16] MEDS ORDERED: FUROSEMIDE 40MG/4ML VIAL IVP NR (13:00)
[2022-02-16] MEDS: IPRATROPIUM BROMIDE (0.02%) 0.5MG/2.5ML NEB HHN SCH ×2 (14:27→20:18)
[2022-02-16] MEDS: BUDESONIDE 0.5MG/2ML NEB HHN SCH ×2 (14:27→20:18)
[2022-02-16] MEDS: DILTIAZEM HCL 60MG TABLET PO SCH ×2 (14:32→21:08)
[2022-02-16 17:21] LABS: BG BASE EXCESS 13.8 mmol/L (-2.0-2.0); BG CARBOXYHEMOGLOBIN 0.3 % (0.5-1.5); BG DEOXYHEMOGLOBIN 5.9 % (0.0-5.0); BG HCO3 ACT 41.6 mmol/L (22.0-26.0); BG METHEMOGLOBIN 0.3 % (0.0-1.5); BG OXYGEN SATURATION 94.1 % (92.0-98.5); BG OXYHEMOGLOBIN 93.5 % (94.0-97.0); BG PCO2 63.4 mmHg (35.0-45.0); BG PH 7.435 (7.350-7.450); BG PO2 66.9 mmHg (75.0-100.0); BG SAMPLE SITE RIGHT RADIAL; BG TOTAL HEMOGLOBIN 16.4 g/dL (12.0-18.0); BG VENT MODE MASK - BIPAP
[2022-02-16] MEDS: METHYLPREDNISOLONE SOD SUCC 40 MG/ML VIAL IV SCH (21:07)
[2022-02-16] MEDS: FLUOXETINE HCL 10 MG CAPSULE PO SCH (21:08)
[2022-02-17] VITALS (51 sets, daily range): BP systolic 85–150; BP diastolic 48–91
[2022-02-17] MEDS: IPRATROPIUM BROMIDE (0.02%) 0.5MG/2.5ML NEB HHN SCH ×4 (01:50→20:52)
[2022-02-17 05:19] LABS: HEMATOCRIT. 43.9 % (42.0-52.0); HEMOGLOBIN. 14.1 g/dL (14.0-18.0); MEAN CORPUSCULAR HEMOGLOBIN 27.9 pg (28.0-32.0); MEAN CORPUSCULAR VOLUME 86.7 fL (80.0-94.0); MEAN PLATELET VOLUME 9.7 fl (7.4-10.4); PLATELET 120 x1000/uL (130-400); RED BLOOD CELL COUNT 5.06 mill/uL (4.7-6.1); RED CELL DISTRIBUTION WIDTH 15.4 % (11.6-14.6)
[2022-02-17 05:21] LABS: CHLORIDE 101 mEq/L (98-107)
[2022-02-17] MEDS: METHYLPREDNISOLONE SOD SUCC 40 MG/ML VIAL IV SCH ×3 (06:24→21:11)
[2022-02-17] MEDS: DILTIAZEM HCL 60MG TABLET PO SCH ×4 (06:27→23:28)
[2022-02-17] MEDS: BUDESONIDE 0.5MG/2ML NEB HHN SCH ×2 (08:07→20:52)
[2022-02-17] MEDS: RISPERIDONE 1MG TABLET PO SCH ×2 (08:35→21:10)
[2022-02-17] MEDS: POLYETHYLENE GLYCOL 3350 (17GM) 1 DOSE PACK PO SCH (08:35)
[2022-02-17] MEDS: FUROSEMIDE 40MG/4ML VIAL IVP SCH (08:35)
[2022-02-17] MEDS: PANTOPRAZOLE SODIUM 40 MG/VIAL IV SCH (08:35)
[2022-02-17] MEDS: NICOTINE 21MG PATCH TD SCH (08:36)
[2022-02-17] MEDS: MIDODRINE HCL 2.5MG TABLET PO SCH ×3 (08:36→17:09)
[2022-02-17] MEDS: ENOXAPARIN 80MG/0.8ML SYR SUBCUT SCH ×2 (08:36→21:10)
[2022-02-17 09:28] LABS: BG CARBOXYHEMOGLOBIN 0.5 % (0.5-1.5); BG DEOXYHEMOGLOBIN 9.1 % (0.0-5.0); BG FRACTION INSPIRED OXYGEN 44; BG HCO3 ACT 33.5 mmol/L (22.0-26.0); BG METHEMOGLOBIN 0.2 % (0.0-1.5); BG OXYGEN SATURATION 90.8 % (92.0-98.5); BG OXYHEMOGLOBIN 90.2 % (94.0-97.0); BG PH 7.453 (7.350-7.450); BG PO2 57.1 mmHg (75.0-100.0); BG SAMPLE SITE RIGHT BRACHIAL; BG TOTAL HEMOGLOBIN 15.8 g/dL (12.0-18.0); BG VENT MODE NASAL CANNULA
[2022-02-17 10:50] LABS: PLATELET ESTIMATE SLIGHTLY DECREASED
[2022-02-17] MEDS: LORAZEPAM 2MG/ML CPJ IV PRN (13:19)
[2022-02-17] MEDS: DIGOXIN 500MCG/2ML AMP IV SCH (18:42)
[2022-02-17 19:40] LABS: HEMATOCRIT. 46.3 % (42.0-52.0); HEMOGLOBIN. 14.9 g/dL (14.0-18.0); MEAN CORPUSCULAR HEMOGLOBIN 27.9 pg (28.0-32.0); MEAN CORPUSCULAR VOLUME 86.7 fL (80.0-94.0); MEAN PLATELET VOLUME 9.6 fl (7.4-10.4); PLATELET 137 x1000/uL (130-400); RED BLOOD CELL COUNT 5.34 mill/uL (4.7-6.1); RED CELL DISTRIBUTION WIDTH 15.6 % (11.6-14.6)
[2022-02-17 20:23] LABS: PLATELET ESTIMATE NORMAL
[2022-02-17] MEDS: FLUOXETINE HCL 10 MG CAPSULE PO SCH (21:10)
[2022-02-18] VITALS (12 sets, daily range): BP systolic 94–133; BP diastolic 58–81
[2022-02-18] MEDS: IPRATROPIUM BROMIDE (0.02%) 0.5MG/2.5ML NEB HHN SCH ×4 (01:04→20:40)
[2022-02-18 02:32] LABS: HEMOGLOBIN 14.6 g/dL (14.0-18.0); MEAN CORPUSCULAR HEMOGLOBIN 27.4 pg (28.0-32.0); MEAN CORPUSCULAR VOLUME 85.9 fL (80.0-94.0); PLATELET 140 x1000/uL (130-400); RED BLOOD CELL COUNT 5.35 mill/uL (4.7-6.1); RED CELL DISTRIBUTION WIDTH 15.7 % (11.6-14.6)
[2022-02-18] MEDS: METHYLPREDNISOLONE SOD SUCC 40 MG/ML VIAL IV SCH ×2 (05:31→13:39)
[2022-02-18] MEDS: DILTIAZEM HCL 60MG TABLET PO SCH ×3 (05:31→17:19)
[2022-02-18] MEDS: BUDESONIDE 0.5MG/2ML NEB HHN SCH ×2 (08:03→20:40)
[2022-02-18] MEDS: ENOXAPARIN 80MG/0.8ML SYR SUBCUT SCH ×2 (09:18→21:31)
[2022-02-18] MEDS: NICOTINE 21MG PATCH TD SCH (09:18)
[2022-02-18] MEDS: MIDODRINE HCL 2.5MG TABLET PO SCH ×3 (09:20→17:19)
[2022-02-18] MEDS: FUROSEMIDE 40MG/4ML VIAL IVP SCH (09:20)
[2022-02-18] MEDS: POLYETHYLENE GLYCOL 3350 (17GM) 1 DOSE PACK PO SCH (09:20)
[2022-02-18] MEDS: PANTOPRAZOLE SODIUM 40 MG/VIAL IV SCH (09:20)
[2022-02-18] MEDS: ACETAMINOPHEN 325MG TABLET PO PRN (09:21)
[2022-02-18] MEDS: RISPERIDONE 1MG TABLET PO SCH ×2 (09:21→21:33)
[2022-02-18 09:33] LABS: DIGOXIN 0.2 ng/mL (0.9-2.0)
[2022-02-18] MEDS ORDERED: DIGOXIN 500MCG/2ML AMP IV PRN (16:00)
[2022-02-18] MEDS: DIGOXIN 500MCG/2ML AMP IV SCH (17:19)
[2022-02-18] MEDS: FLUOXETINE HCL 10 MG CAPSULE PO SCH (21:33)
[2022-02-19] VITALS (12 sets, daily range): BP systolic 98–133; BP diastolic 59–93
[2022-02-19] MEDS: IPRATROPIUM BROMIDE (0.02%) 0.5MG/2.5ML NEB HHN SCH ×5 (00:42→20:33)
[2022-02-19] MEDS: DILTIAZEM HCL 60MG TABLET PO SCH ×4 (00:54→17:53)
[2022-02-19] MEDS: MIDODRINE HCL 2.5MG TABLET PO SCH ×3 (09:00→17:00)
[2022-02-19] MEDS: BUDESONIDE 0.5MG/2ML NEB HHN SCH (09:39)
[2022-02-19] MEDS: POLYETHYLENE GLYCOL 3350 (17GM) 1 DOSE PACK PO SCH (10:08)
[2022-02-19] MEDS: RISPERIDONE 1MG TABLET PO SCH ×2 (10:09→20:42)
[2022-02-19] MEDS: PANTOPRAZOLE SODIUM 40 MG/VIAL IV SCH (10:10)
[2022-02-19] MEDS: METHYLPREDNISOLONE SOD SUCC 40 MG/ML VIAL IV SCH (10:11)
[2022-02-19] MEDS: FUROSEMIDE 40MG/4ML VIAL IVP SCH (10:11)
[2022-02-19] MEDS: ENOXAPARIN 80MG/0.8ML SYR SUBCUT SCH ×2 (10:15→20:42)
[2022-02-19] MEDS: NICOTINE 21MG PATCH TD SCH (10:15)
[2022-02-19 11:53] LABS: HEMATOCRIT. 44.4 % (42.0-52.0); HEMOGLOBIN. 14.2 g/dL (14.0-18.0); MEAN CORPUSCULAR HEMOGLOBIN 27.6 pg (28.0-32.0); MEAN CORPUSCULAR VOLUME 86.3 fL (80.0-94.0); MEAN PLATELET VOLUME 9.5 fl (7.4-10.4); PLATELET 152 x1000/uL (130-400); RED BLOOD CELL COUNT 5.14 mill/uL (4.7-6.1); RED CELL DISTRIBUTION WIDTH 15.5 % (11.6-14.6)
[2022-02-19 12:15] LABS: CHLORIDE 104 mEq/L (98-107)
[2022-02-19 12:55] LABS: PLATELET ESTIMATE NORMAL
[2022-02-19] MEDS: DIGOXIN 500MCG/2ML AMP IV SCH (17:54)
[2022-02-19] MEDS: FLUOXETINE HCL 10 MG CAPSULE PO SCH (20:42)
[2022-02-20] VITALS (9 sets, daily range): BP systolic 98–143; BP diastolic 36–94
[2022-02-20] MEDS: DILTIAZEM HCL 60MG TABLET PO SCH ×4 (00:34→17:13)
[2022-02-20] MEDS: IPRATROPIUM BROMIDE (0.02%) 0.5MG/2.5ML NEB HHN SCH ×4 (00:56→20:17)
[2022-02-20] MEDS: METHYLPREDNISOLONE SOD SUCC 40 MG/ML VIAL IV SCH (08:53)
[2022-02-20] MEDS: PANTOPRAZOLE SODIUM 40 MG/VIAL IV SCH (08:53)
[2022-02-20] MEDS: FUROSEMIDE 40MG/4ML VIAL IVP SCH (08:53)
[2022-02-20] MEDS: POLYETHYLENE GLYCOL 3350 (17GM) 1 DOSE PACK PO SCH (08:53)
[2022-02-20] MEDS: MIDODRINE HCL 2.5MG TABLET PO SCH ×3 (08:54→16:29)
[2022-02-20] MEDS: ENOXAPARIN 80MG/0.8ML SYR SUBCUT SCH ×2 (08:54→21:51)
[2022-02-20] MEDS: RISPERIDONE 1MG TABLET PO SCH ×2 (08:54→21:51)
[2022-02-20] MEDS: NICOTINE 21MG PATCH TD SCH (08:55)
[2022-02-20 09:12] LABS: HEMATOCRIT. 44.4 % (42.0-52.0); HEMOGLOBIN. 14.1 g/dL (14.0-18.0); MEAN CORPUSCULAR HEMOGLOBIN 27.6 pg (28.0-32.0); MEAN CORPUSCULAR VOLUME 86.8 fL (80.0-94.0); MEAN PLATELET VOLUME 9.4 fl (7.4-10.4); PLATELET 161 x1000/uL (130-400); RED BLOOD CELL COUNT 5.12 mill/uL (4.7-6.1)
[2022-02-20 09:22] LABS: CHLORIDE 102 mEq/L (98-107)
[2022-02-20 13:57] LABS: PLATELET ESTIMATE NORMAL
[2022-02-20] MEDS: DIGOXIN 500MCG/2ML AMP IV SCH (17:13)
[2022-02-20] MEDS: FLUOXETINE HCL 10 MG CAPSULE PO SCH (21:51)
[2022-02-21] VITALS (12 sets, daily range): BP systolic 77–144; BP diastolic 43–90
[2022-02-21] MEDS: DILTIAZEM HCL 60MG TABLET PO SCH ×4 (00:38→18:29)
[2022-02-21] MEDS: IPRATROPIUM BROMIDE (0.02%) 0.5MG/2.5ML NEB HHN SCH ×4 (02:14→21:16)
[2022-02-21 07:54] LABS: CHLORIDE 99 mEq/L (98-107)
[2022-02-21] MEDS: POLYETHYLENE GLYCOL 3350 (17GM) 1 DOSE PACK PO SCH (08:27)
[2022-02-21] MEDS: PREDNISONE 20MG TABLET PO SCH (08:27)
[2022-02-21] MEDS: FUROSEMIDE 40MG/4ML VIAL IVP SCH (08:27)
[2022-02-21] MEDS: PANTOPRAZOLE SODIUM 40 MG/VIAL IV SCH (08:27)
[2022-02-21] MEDS: RISPERIDONE 1MG TABLET PO SCH ×2 (08:27→21:41)
[2022-02-21] MEDS: NICOTINE 21MG PATCH TD SCH (08:28)
[2022-02-21] MEDS: MIDODRINE HCL 2.5MG TABLET PO SCH ×3 (08:33→17:23)
[2022-02-21] MEDS: ENOXAPARIN 80MG/0.8ML SYR SUBCUT SCH ×2 (08:33→21:41)
[2022-02-21 08:40] LABS: BASOPHILS % 0.1 % (0.0-2.0); EOSINOPHILS % 0.4 % (0.0-5.0); HEMATOCRIT. 42.9 % (42.0-52.0); HEMOGLOBIN. 13.8 g/dL (14.0-18.0); LYMPHOCYTES % 7.9 % (20.0-50.0); MEAN CORPUSCULAR HEMOGLOBIN 27.7 pg (28.0-32.0); MEAN PLATELET VOLUME 9.3 fl (7.4-10.4); MONOCYTES % 6.5 % (2.0-8.0); NEUTROPHILS % 85.1 % (40.0-76.0); PLATELET 175 x1000/uL (130-400); RED BLOOD CELL COUNT 4.99 mill/uL (4.7-6.1); RED CELL DISTRIBUTION WIDTH 15.7 % (11.6-14.6)
[2022-02-21] MEDS: ACETAMINOPHEN 325MG TABLET PO PRN ×2 (12:01→16:01)
[2022-02-21] MEDS: DIGOXIN 125MCG TABLET PO SCH (18:29)
[2022-02-21] MEDS: FLUOXETINE HCL 10 MG CAPSULE PO SCH (21:41)
[2022-02-21] MEDS: CARVEDILOL 6.25 MG TABLET PO SCH (21:44)
[2022-02-22] VITALS (10 sets, daily range): BP systolic 109–136; BP diastolic 58–89
[2022-02-22] MEDS: IPRATROPIUM BROMIDE (0.02%) 0.5MG/2.5ML NEB HHN SCH ×2 (01:55→08:27)
[2022-02-22] MEDS: DILTIAZEM HCL 90MG TABLET PO SCH ×4 (05:35→17:46)
[2022-02-22] MEDS: PANTOPRAZOLE SODIUM 40 MG/VIAL IV SCH (08:53)
[2022-02-22] MEDS: ENOXAPARIN 80MG/0.8ML SYR SUBCUT SCH ×2 (08:53→20:03)
[2022-02-22] MEDS: FUROSEMIDE 40MG/4ML VIAL IVP SCH (08:53)
[2022-02-22] MEDS: RISPERIDONE 1MG TABLET PO SCH ×2 (08:53→20:02)
[2022-02-22] MEDS: PREDNISONE 20MG TABLET PO SCH (08:53)
[2022-02-22] MEDS: MIDODRINE HCL 2.5MG TABLET PO SCH ×3 (08:59→17:46)
[2022-02-22] MEDS: POLYETHYLENE GLYCOL 3350 (17GM) 1 DOSE PACK PO SCH (08:59)
[2022-02-22] MEDS: NICOTINE 21MG PATCH TD SCH (08:59)
[2022-02-22] MEDS: CARVEDILOL 6.25 MG TABLET PO SCH ×2 (09:00→20:02)
[2022-02-22] MEDS ORDERED: POTASSIUM CHLORIDE 20MEQ TABLET SR PO SCH (09:00)
[2022-02-22] MEDS: DIGOXIN 125MCG TABLET PO SCH (17:46)
[2022-02-22] MEDS: FLUOXETINE HCL 10 MG CAPSULE PO SCH (20:02)
== END 2022-02-22 20:16 | DRG 207 ==
LOC: ER 08:37 → MICUSO 11:17 → EDBEDREQTM 11:30 → EDBEDREQ 11:30 → EDBEDREQSVC 11:30 → EDBEDREQ 11:31 → CANRESERV 22:05 → ENRESERV 22:05 → 5EST 02-17 12:10
PROVIDERS: ADMIT Internal Medicine; ATTEND Internal Medicine
PROC: 5A1955Z Respiratory Ventilation, Greater than 96 Consecutive Hours (ICD-10-PCS; principal; 2022-02-06)
PROC: 0BH17EZ Insertion of Endotracheal Airway into Trachea, Via Natural or Artificial Opening (ICD-10-PCS; 2022-02-06)
PROC: 0BH17EZ Insertion of Endotracheal Airway into Trachea, Via Natural or Artificial Opening (ICD-10-PCS; 2022-02-07)
PROC: 02HV33Z Insertion of Infusion Device into Superior Vena Cava, Percutaneous Approach (ICD-10-PCS; 2022-02-07)
PROC: B548ZZA Ultrasonography of Superior Vena Cava, Guidance (ICD-10-PCS; 2022-02-07)
PROC: 0BH17EZ Insertion of Endotracheal Airway into Trachea, Via Natural or Artificial Opening (ICD-10-PCS; 2022-02-08)
PROC: 5A09457 Assistance with Respiratory Ventilation, 24-96 Consecutive Hours, Continuous Positive Airway Pressure (ICD-10-PCS; 2022-02-13)
PROC: 5A09357 Assistance with Respiratory Ventilation, Less than 24 Consecutive Hours, Continuous Positive Airway Pressure (ICD-10-PCS; 2022-02-16)
PROC: 5A09357 Assistance with Respiratory Ventilation, Less than 24 Consecutive Hours, Continuous Positive Airway Pressure (ICD-10-PCS; 2022-02-17)
DX: J96.01 Acute respiratory failure with hypoxia (principal); I26.99 Other pulmonary embolism without acute cor pulmonale; I46.9 Cardiac arrest, cause unspecified; G93.41 Metabolic encephalopathy; F84.0 Autistic disorder; I31.39 Other pericardial effusion (noninflammatory); D68.9 Coagulation defect, unspecified; I42.0 Dilated cardiomyopathy; E44.0 Moderate protein-calorie malnutrition; R18.8 Other ascites; R57.9 Shock, unspecified; G93.40 Encephalopathy, unspecified; T85.628A Displacement of other specified internal prosthetic devices, implants and grafts, initial encounter; Z20.822 Contact with and (suspected) exposure to COVID-19; K74.60 Unspecified cirrhosis of liver; I10 Essential (primary) hypertension; F20.9 Schizophrenia, unspecified; I48.0 Paroxysmal atrial fibrillation; K80.20 Calculus of gallbladder without cholecystitis without obstruction; D69.6 Thrombocytopenia, unspecified; F17.210 Nicotine dependence, cigarettes, uncomplicated; R74.01 Elevation of levels of liver transaminase levels; R59.0 Localized enlarged lymph nodes; N36.8 Other specified disorders of urethra; F31.9 Bipolar disorder, unspecified; I49.3 Ventricular premature depolarization; J44.9 Chronic obstructive pulmonary disease, unspecified; Z79.01 Long term (current) use of anticoagulants; Z79.899 Other long term (current) drug therapy; Z68.26 Body mass index [BMI] 26.0-26.9, adult; Y83.8 Other surgical procedures as the cause of abnormal reaction of the patient, or of later complication, without mention of misadventure at the time of the procedure; Y92.89 Other specified places as the place of occurrence of the external cause
CPT/HCPCS: 31500; 36415; 36573; 36600; 71045; 71275; 76604; 76700; 80048; 80053; 80076; 80162; 81003; 82105; 82140; 82248; 82375; 82805; 82962; 83605; 83735; 84145; 84439; 84443; 84478; 84484; 85025; 85027; 86706; 86803; 87070; 87340; 87426; 87804; 92610; 93005; 93306; 93970; 94002; 94003; 94640; 94660; 97162; 97166; 97530; 99291; C1725; C9113; C9803; J0282; J1120; J1160; J1200; J1630; J1644; J1650; J1940; J1956; J2060; J2250; J2370; J2543; J2704; J2920; J2930; J3010; J3370; J3490; J7030; J7050; J7060; J7512; J7626; Q9967; A4315

== ENCOUNTER 2022-04-26 12:11 | Inpatient (IN) | payer MEDICARE, MEDICAID ==
[~2022-04-26] VITALS: Ht 185.4 cm; Wt 65.2 kg
[~2022-04-26 12:11] MED LIST changes: +ETOMIDATE 2MG/ML 10ML VIAL IV ONE; +IPRA3AMP9 HHN; +SUCCINYLCHOLINE CHLORIDE 200MG/10ML IV ONE
[2022-04-26] MEDS ORDERED: SODIUM CHLORIDE 0.9% 1,000 ML IV ONE (16:00)
[2022-04-26 17:04] LABS: BG BASE EXCESS 2.2 mmol/L (-2.0-2.0); BG CARBOXYHEMOGLOBIN 1.7 % (0.5-1.5); BG DEOXYHEMOGLOBIN 5.2 % (0.0-5.0); BG FRACTION INSPIRED OXYGEN 32; BG HCO3 ACT 34.1 mmol/L (22.0-26.0); BG METHEMOGLOBIN 0.1 % (0.0-1.5); BG OXYGEN SATURATION 94.7 % (92.0-98.5); BG PCO2 90.9 mmHg (35.0-45.0); BG PH 7.192 (7.350-7.450); BG PO2 83.8 mmHg (75.0-100.0); BG SAMPLE SITE RIGHT BRACHIAL; BG TOTAL HEMOGLOBIN 16.3 g/dL (12.0-18.0); BG VENT MODE NASAL CANNULA
[2022-04-26] MEDS ORDERED: PROPOFOL 10MG/ML 100ML 100 ML IV STA ×2 (17:16→21:48)
[2022-04-26 17:26] LABS: CHLORIDE 100 mEq/L (98-107)
[2022-04-26 17:28] LABS: INR 1.4; PARTIAL THROMBOPLASTIN TIME 25.9 sec (23.4-31.0); PROTHROMBIN TIME 14.9 sec (9.6-11.0)
[2022-04-26] MEDS ORDERED: PIPERACILLIN/TAZ 3.375G PREMIX 50 ML IV ONE (17:45)
[2022-04-26] MEDS ORDERED: DILTIAZEM HCL 5MG/ML 5ML VIAL IV ONE (17:45)
[2022-04-26] MEDS ORDERED: SODIUM CHLORIDE 0.9% 1000ML BAG (SEPSIS BOLUS) IV ONE (17:45)
[2022-04-26] MEDS ORDERED: FUROSEMIDE 40MG/4ML VIAL IVP ONE (17:45)
[2022-04-26] MEDS ORDERED: VANCOMYCIN 1G PREMIX 200 ML IV ONE (17:45)
[2022-04-26 18:57] LABS: CLARITY URINE CLOUDY (CLEAR); COLOR URINE DARK YELLOW (YELLOW); KETONES URINE NEGATIVE (NEGATIVE); LEUKOCYTE ESTERASE URINE TRACE (NEGATIVE); NITRITE URINE NEGATIVE (NEGATIVE); OCCULT BLOOD URINE NEGATIVE (NEGATIVE); PROTEIN URINE 2+ (NEGATIVE); SPECIFIC GRAVITY URINE 1.029 (1.005-1.030)
[2022-04-26 18:59] LABS: BG BASE EXCESS 1.1 mmol/L (-2.0-2.0); BG CARBOXYHEMOGLOBIN 1.5 % (0.5-1.5); BG DEOXYHEMOGLOBIN 0.4 % (0.0-5.0); BG FRACTION INSPIRED OXYGEN 100; BG HCO3 ACT 27.2 mmol/L (22.0-26.0); BG METHEMOGLOBIN 0.4 % (0.0-1.5); BG OXYGEN SATURATION 99.6 % (92.0-98.5); BG OXYHEMOGLOBIN 97.7 % (94.0-97.0); BG PCO2 48.1 mmHg (35.0-45.0); BG SAMPLE SITE RIGHT RADIAL; BG TOTAL HEMOGLOBIN 15.8 g/dL (12.0-18.0); BG VENT MODE VENT - AC
[2022-04-26 20:14] LABS: BASOPHILS % 0.4 % (0.0-2.0); EOSINOPHILS % 0.4 % (0.0-5.0); HEMATOCRIT. 51.6 % (42.0-52.0); HEMOGLOBIN. 15.1 g/dL (14.0-18.0); LYMPHOCYTES % 12.9 % (20.0-50.0); MEAN CORPUSCULAR HEMOGLOBIN 28.1 pg (28.0-32.0); MEAN CORPUSCULAR VOLUME 95.7 fL (80.0-94.0); MONOCYTES % 9.9 % (2.0-8.0); NEUTROPHILS % 76.4 % (40.0-76.0); RED BLOOD CELL COUNT 5.39 mill/uL (4.7-6.1)
[2022-04-26 20:52] LABS: DIGOXIN 0.1 ng/mL (0.9-2.0)
[2022-04-26 21:46] LABS: PLATELET 164 x1000/uL (130-400)
[2022-04-26] MEDS ORDERED: PROPOFOL 10MG/ML 100ML 100 ML IV NR (21:48)
[2022-04-26] MEDS ORDERED: SODIUM BICARBONATE 8.4% 1 MEQ/ML 50ML SYR IV ONE (22:00)
[2022-04-27] VITALS (65 sets, daily range): BP systolic 82–145; BP diastolic 39–88
[2022-04-27] MEDS ORDERED: CLONIDINE 0.1MG TABLET NG PRN (00:30)
[2022-04-27] MEDS ORDERED: DIPHENHYDRAMINE 50MG/ML VIAL IV PRN (00:30)
[2022-04-27] MEDS ORDERED: ONDANSETRON HCL 4MG/2ML INJ IV PRN (00:30)
[2022-04-27] MEDS ORDERED: LORAZEPAM 2MG/ML CPJ IV PRN (00:30)
[2022-04-27] MEDS ORDERED: ACETAMINOPHEN 650MG/20.3ML UDC GT PRN ×2 (00:30)
[2022-04-27] MEDS: FUROSEMIDE 40MG/4ML VIAL IVP SCH ×2 (01:33→13:07)
[2022-04-27] MEDS: ENOXAPARIN 100MG/ML SYR SUBCUT SCH ×2 (03:22→14:20)
[2022-04-27] MEDS: SODIUM CHLORIDE 0.9% INJ 3ML FLUSH IVF SCH ×3 (05:16→21:09)
[2022-04-27] MEDS: DILTIAZEM HCL 30MG TABLET NG SCH ×3 (05:16→21:09)
[2022-04-27] MEDS: FERROUS SULFATE 325MG TABLET PO SCH ×3 (07:10→18:05)
[2022-04-27] MEDS ORDERED: FENTANYL CITRATE/PF 2,500 MCG in SODIUM CHLORIDE 0.9% 200 ML IV PRN (08:15)
[2022-04-27] MEDS: FENTANYL 2500MCG/250ML PMX 250 ML IV PRN (09:00)
[2022-04-27] MEDS: PANTOPRAZOLE SODIUM 40 MG/VIAL IV SCH (10:24)
[2022-04-27] MEDS: CARVEDILOL 6.25 MG TABLET NG SCH ×2 (10:25→21:08)
[2022-04-27 10:30] LABS: BG BASE EXCESS 9.3 mmol/L (-2.0-2.0); BG CARBOXYHEMOGLOBIN 0.2 % (0.5-1.5); BG DEOXYHEMOGLOBIN 1.6 % (0.0-5.0); BG FRACTION INSPIRED OXYGEN 80; BG HCO3 ACT 32.6 mmol/L (22.0-26.0); BG METHEMOGLOBIN 0.8 % (0.0-1.5); BG OXYGEN SATURATION 98.4 % (92.0-98.5); BG OXYHEMOGLOBIN 97.4 % (94.0-97.0); BG PCO2 39.2 mmHg (35.0-45.0); BG PH 7.538 (7.350-7.450); BG PO2 113.1 mmHg (75.0-100.0); BG SAMPLE SITE RIGHT RADIAL; BG TOTAL HEMOGLOBIN 16.3 g/dL (12.0-18.0); BG VENT MODE VENT - AC
[2022-04-27] MEDS: FLUOXETINE HCL 20MG CAPSULE NG SCH (10:40)
[2022-04-27] MEDS ORDERED: DIGOXIN 500MCG/2ML AMP IV NR (10:45)
[2022-04-27] MEDS ORDERED: IPRATROPIUM/ALBUTEROL 0.5-3(2.5)MG/3ML NEB HHN PRN (11:00)
[2022-04-27] MEDS: PROPOFOL 10MG/ML 100ML 100 ML IV PRN ×2 (11:43→18:34)
[2022-04-27] MEDS ORDERED: ACETAZOLAMIDE SODIUM 500MG/VIAL IV NR (12:00)
[2022-04-27] MEDS ORDERED: DIGOXIN 500MCG/2ML AMP IV PRN (13:00)
[2022-04-27] MEDS: IPRATROPIUM/ALBUTEROL 0.5-3(2.5)MG/3ML NEB HHN SCH ×2 (14:00→20:34)
[2022-04-27] MEDS ORDERED: DIGOXIN 125MCG TABLET PO SCH (18:00)
[2022-04-27] MEDS: DIGOXIN 500MCG/2ML AMP IV SCH (18:04)
[2022-04-27 19:43] LABS: *AMPHETAMINES SCREEN URINE NEGATIVE (NEGATIVE); *BARBITURATES SCREEN URINE NEGATIVE (NEGATIVE); *BENZODIAZEPINES SCREEN URINE NEGATIVE (NEGATIVE); *COCAINE SCREEN URINE NEGATIVE (NEGATIVE); CANNABINOID URINE SCREEN NEGATIVE (NEGATIVE); METHADONE URINE SCREEN NEGATIVE (NEGATIVE); OPIATES URINE SCREEN NEGATIVE (NEGATIVE); PHENCYCLIDINE URINE SCREEN NEGATIVE (NEGATIVE)
[2022-04-28] VITALS (97 sets, daily range): BP systolic 82–136; BP diastolic 44–91
[2022-04-28] MEDS: FUROSEMIDE 40MG/4ML VIAL IVP SCH ×2 (00:17→11:39)
[2022-04-28] MEDS: IPRATROPIUM/ALBUTEROL 0.5-3(2.5)MG/3ML NEB HHN SCH ×5 (02:09→20:07)
[2022-04-28] MEDS: ENOXAPARIN 100MG/ML SYR SUBCUT SCH ×2 (03:57→18:14)
[2022-04-28] MEDS: SODIUM CHLORIDE 0.9% INJ 3ML FLUSH IVF SCH ×3 (05:01→21:47)
[2022-04-28] MEDS: DILTIAZEM HCL 30MG TABLET NG SCH ×3 (05:01→22:00)
[2022-04-28 05:41] LABS: BASOPHILS % 0.6 % (0.0-2.0); EOSINOPHILS % 1.3 % (0.0-5.0); HEMATOCRIT. 47.3 % (42.0-52.0); HEMOGLOBIN. 14.9 g/dL (14.0-18.0); LYMPHOCYTES % 14.9 % (20.0-50.0); MEAN CORPUSCULAR HEMOGLOBIN 28.1 pg (28.0-32.0); MEAN CORPUSCULAR VOLUME 89.1 fL (80.0-94.0); MONOCYTES % 9.4 % (2.0-8.0); NEUTROPHILS % 73.8 % (40.0-76.0); PLATELET 132 x1000/uL (130-400); RED CELL DISTRIBUTION WIDTH 19.2 % (11.6-14.6)
[2022-04-28] MEDS: FERROUS SULFATE 325MG TABLET PO SCH ×3 (06:01→18:15)
[2022-04-28] MEDS: PROPOFOL 10MG/ML 100ML 100 ML IV PRN ×2 (06:02→18:14)
[2022-04-28 09:21] LABS: BG BASE EXCESS 10.6 mmol/L (-2.0-2.0); BG CARBOXYHEMOGLOBIN 1.8 % (0.5-1.5); BG DEOXYHEMOGLOBIN 7.6 % (0.0-5.0); BG FRACTION INSPIRED OXYGEN 60; BG HCO3 ACT 37.4 mmol/L (22.0-26.0); BG METHEMOGLOBIN 0.4 % (0.0-1.5); BG OXYGEN SATURATION 92.2 % (92.0-98.5); BG OXYHEMOGLOBIN 90.2 % (94.0-97.0); BG PCO2 57.5 mmHg (35.0-45.0); BG PH 7.431 (7.350-7.450); BG PO2 63.4 mmHg (75.0-100.0); BG SAMPLE SITE RIGHT RADIAL; BG TOTAL HEMOGLOBIN 15.6 g/dL (12.0-18.0); BG VENT MODE VENT - AC
[2022-04-28] MEDS: CARVEDILOL 6.25 MG TABLET NG SCH ×2 (09:55→21:00)
[2022-04-28] MEDS: PANTOPRAZOLE SODIUM 40 MG/VIAL IV SCH (09:55)
[2022-04-28] MEDS: FLUOXETINE HCL 20MG CAPSULE NG SCH (09:55)
[2022-04-28 10:04] LABS: BASOPHILS % 0.8 % (0.0-2.0); EOSINOPHILS % 1.3 % (0.0-5.0); HEMOGLOBIN. 14.6 g/dL (14.0-18.0); LYMPHOCYTES % 15.1 % (20.0-50.0); MEAN CORPUSCULAR HEMOGLOBIN 28.1 pg (28.0-32.0); MEAN CORPUSCULAR VOLUME 88.7 fL (80.0-94.0); MEAN PLATELET VOLUME 9.3 fl (7.4-10.4); MONOCYTES % 8.2 % (2.0-8.0); NEUTROPHILS % 74.6 % (40.0-76.0); PLATELET 151 x1000/uL (130-400); RED BLOOD CELL COUNT 5.19 mill/uL (4.7-6.1); RED CELL DISTRIBUTION WIDTH 19.2 % (11.6-14.6)
[2022-04-28] MEDS ORDERED: ACETAZOLAMIDE SODIUM 500MG/VIAL IV NR (10:30)
[2022-04-28] MEDS ORDERED: KCL 20MEQ/100ML PREMIX 100 ML IV NR (10:30)
[2022-04-28] MEDS ORDERED: MIDODRINE HCL 5MG TABLET PO SCH (17:00)
[2022-04-28] MEDS ORDERED: PROPOFOL 10MG/ML 100ML 100 ML IV PRN ×2 (17:45)
[2022-04-28] MEDS: DIGOXIN 500MCG/2ML AMP IV SCH (18:16)
[2022-04-28 21:34] LABS: PHOSPHORUS 4.4 mg/dL (2.5-4.9)
[2022-04-29] VITALS (97 sets, daily range): BP systolic 81–123; BP diastolic 38–86
[2022-04-29] MEDS: IPRATROPIUM/ALBUTEROL 0.5-3(2.5)MG/3ML NEB HHN SCH ×3 (02:04→20:21)
[2022-04-29] MEDS: ENOXAPARIN 100MG/ML SYR SUBCUT SCH ×2 (02:41→18:18)
[2022-04-29 05:31] LABS: BASOPHILS % 0.5 % (0.0-2.0); EOSINOPHILS % 1.4 % (0.0-5.0); HEMATOCRIT. 48.3 % (42.0-52.0); HEMOGLOBIN. 15.5 g/dL (14.0-18.0); MEAN CORPUSCULAR HEMOGLOBIN 28.5 pg (28.0-32.0); MEAN CORPUSCULAR VOLUME 89.1 fL (80.0-94.0); MEAN PLATELET VOLUME 9.8 fl (7.4-10.4); MONOCYTES % 8.6 % (2.0-8.0); NEUTROPHILS % 74.5 % (40.0-76.0); PLATELET 164 x1000/uL (130-400); RED BLOOD CELL COUNT 5.42 mill/uL (4.7-6.1); RED CELL DISTRIBUTION WIDTH 19.4 % (11.6-14.6)
[2022-04-29] MEDS: DILTIAZEM HCL 30MG TABLET NG SCH ×3 (05:53→21:09)
[2022-04-29] MEDS: SODIUM CHLORIDE 0.9% INJ 3ML FLUSH IVF SCH ×3 (06:00→21:15)
[2022-04-29] MEDS ORDERED: POTASSIUM CHLORIDE 20MEQ TABLET SR PO NR (07:45)
[2022-04-29] MEDS ORDERED: MIDODRINE HCL 5MG TABLET NG SCH (09:00)
[2022-04-29] MEDS: CARVEDILOL 6.25 MG TABLET NG SCH ×2 (09:00→21:00)
[2022-04-29] MEDS ORDERED: MAGNESIUM 1 G PREMIX 100 ML IV NR (09:00)
[2022-04-29 09:17] LABS: BG BASE EXCESS 8.9 mmol/L (-2.0-2.0); BG CARBOXYHEMOGLOBIN 1.4 % (0.5-1.5); BG DEOXYHEMOGLOBIN 8.3 % (0.0-5.0); BG FRACTION INSPIRED OXYGEN 60; BG HCO3 ACT 34.2 mmol/L (22.0-26.0); BG METHEMOGLOBIN 0.4 % (0.0-1.5); BG OXYGEN SATURATION 91.5 % (92.0-98.5); BG OXYHEMOGLOBIN 89.9 % (94.0-97.0); BG PCO2 48.3 mmHg (35.0-45.0); BG PH 7.468 (7.350-7.450); BG PO2 62.5 mmHg (75.0-100.0); BG SAMPLE SITE RIGHT RADIAL; BG TOTAL HEMOGLOBIN 16.3 g/dL (12.0-18.0); BG VENT MODE VENT - AC
[2022-04-29] MEDS: CALCIUM 1250MG TABLET (500MG ELEMENTAL CALCIUM) PO SCH (10:19)
[2022-04-29] MEDS: PANTOPRAZOLE SODIUM 40 MG/VIAL IV SCH (10:19)
[2022-04-29] MEDS: FLUOXETINE HCL 20MG CAPSULE NG SCH (10:20)
[2022-04-29] MEDS: FERROUS SULFATE 325MG TABLET PO SCH ×3 (10:20→18:16)
[2022-04-29] MEDS: SPIRONOLACTONE 25MG TABLET NG SCH (10:21)
[2022-04-29] MEDS ORDERED: POTASSIUM CHLORIDE 20MEQ/PACKET PO NR (11:00)
[2022-04-29] MEDS: FUROSEMIDE 40MG/4ML VIAL IVP SCH (11:42)
[2022-04-29] MEDS ORDERED: ACETAZOLAMIDE SODIUM 500MG/VIAL IV NR (12:00)
[2022-04-29] MEDS: MIDODRINE HCL 5MG TABLET PO SCH ×2 (13:06→21:09)
[2022-04-29] MEDS ORDERED: LIDOCAINE HCL 1% 10 MG/ML 10ML VIAL ONE (13:40)
[2022-04-29] MEDS ORDERED: DIGOXIN 500MCG/2ML AMP IV NR ×2 (15:00→23:00)
[2022-04-29] MEDS: DIGOXIN 500MCG/2ML AMP IV SCH (18:00)
[2022-04-29] MEDS: PROPOFOL 10MG/ML 100ML 100 ML IV PRN (23:07)
[2022-04-30] VITALS (92 sets, daily range): BP systolic 79–121; BP diastolic 22–94
[2022-04-30] MEDS: FUROSEMIDE 40MG/4ML VIAL IVP SCH ×2 (00:56→14:01)
[2022-04-30] MEDS: ENOXAPARIN 100MG/ML SYR SUBCUT SCH ×2 (02:30→19:42)
[2022-04-30] MEDS: IPRATROPIUM/ALBUTEROL 0.5-3(2.5)MG/3ML NEB HHN SCH ×4 (02:34→20:23)
[2022-04-30] MEDS: DILTIAZEM HCL 30MG TABLET NG SCH ×3 (06:00→22:00)
[2022-04-30] MEDS: MIDODRINE HCL 5MG TABLET PO SCH ×3 (06:36→20:39)
[2022-04-30] MEDS: SODIUM CHLORIDE 0.9% INJ 3ML FLUSH IVF SCH ×3 (06:36→22:00)
[2022-04-30] MEDS: FERROUS SULFATE 325MG TABLET PO SCH ×3 (06:36→19:41)
[2022-04-30] MEDS: FENTANYL 2500MCG/250ML PMX 250 ML IV PRN (07:20)
[2022-04-30 07:52] LABS: BG DEOXYHEMOGLOBIN 5.7 % (0.0-5.0); BG FRACTION INSPIRED OXYGEN 60; BG HCO3 ACT 28.7 mmol/L (22.0-26.0); BG METHEMOGLOBIN 0.3 % (0.0-1.5); BG OXYGEN SATURATION 94.2 % (92.0-98.5); BG PCO2 42.9 mmHg (35.0-45.0); BG PH 7.443 (7.350-7.450); BG PO2 64.4 mmHg (75.0-100.0); BG SAMPLE SITE RIGHT RADIAL; BG VENT MODE VENT - AC/VC
[2022-04-30] MEDS: CARVEDILOL 6.25 MG TABLET NG SCH ×2 (09:00→21:00)
[2022-04-30] MEDS ORDERED: DOCUSATE SODIUM 100MG CAPSULE PO PRN (09:30)
[2022-04-30] MEDS ORDERED: LACTULOSE 20G/30ML UDC PO NR (09:30)
[2022-04-30] MEDS: CALCIUM 1250MG TABLET (500MG ELEMENTAL CALCIUM) PO SCH (09:36)
[2022-04-30] MEDS: SPIRONOLACTONE 25MG TABLET NG SCH (09:36)
[2022-04-30] MEDS: PANTOPRAZOLE SODIUM 40 MG/VIAL IV SCH (09:36)
[2022-04-30] MEDS: FLUOXETINE HCL 20MG CAPSULE NG SCH (09:37)
[2022-04-30 11:38] LABS: BASOPHILS % 0.5 % (0.0-2.0); EOSINOPHILS % 1.5 % (0.0-5.0); HEMATOCRIT. 50.2 % (42.0-52.0); HEMOGLOBIN. 15.5 g/dL (14.0-18.0); LYMPHOCYTES % 9.7 % (20.0-50.0); MEAN CORPUSCULAR HEMOGLOBIN 27.6 pg (28.0-32.0); MEAN CORPUSCULAR VOLUME 89.6 fL (80.0-94.0); MEAN PLATELET VOLUME 8.8 fl (7.4-10.4); MONOCYTES % 8.1 % (2.0-8.0); NEUTROPHILS % 80.2 % (40.0-76.0); PLATELET 158 x1000/uL (130-400); RED BLOOD CELL COUNT 5.61 mill/uL (4.7-6.1); RED CELL DISTRIBUTION WIDTH 19.6 % (11.6-14.6)
[2022-04-30 11:53] LABS: CHLORIDE 101 mEq/L (98-107)
[2022-04-30 12:12] LABS: DIGOXIN 1.4 ng/mL (0.9-2.0)
[2022-04-30] MEDS: PROPOFOL 10MG/ML 100ML 100 ML IV PRN (14:21)
[2022-04-30] MEDS ORDERED: PROPOFOL 10MG/ML 100ML 100 ML IV PRN (18:15)
[2022-04-30] MEDS: DIGOXIN 500MCG/2ML AMP IV SCH (19:41)
[2022-05-01] VITALS (63 sets, daily range): BP systolic 89–142; BP diastolic 51–81
[2022-05-01] MEDS: FUROSEMIDE 40MG/4ML VIAL IVP SCH ×2 (00:30→15:08)
[2022-05-01] MEDS: IPRATROPIUM/ALBUTEROL 0.5-3(2.5)MG/3ML NEB HHN SCH ×3 (01:44→19:54)
[2022-05-01] MEDS: PROPOFOL 10MG/ML 100ML 100 ML IV PRN (05:06)
[2022-05-01] MEDS: ENOXAPARIN 100MG/ML SYR SUBCUT SCH ×2 (05:08→18:13)
[2022-05-01] MEDS: DILTIAZEM HCL 30MG TABLET NG SCH ×4 (05:09→22:30)
[2022-05-01] MEDS: SODIUM CHLORIDE 0.9% INJ 3ML FLUSH IVF SCH ×3 (05:10→22:30)
[2022-05-01] MEDS: FERROUS SULFATE 325MG TABLET PO SCH ×3 (05:10→18:13)
[2022-05-01] MEDS: MIDODRINE HCL 5MG TABLET PO SCH ×3 (05:11→22:30)
[2022-05-01 05:46] LABS: BASOPHILS % 0.4 % (0.0-2.0); EOSINOPHILS % 1.3 % (0.0-5.0); HEMATOCRIT. 48.5 % (42.0-52.0); HEMOGLOBIN. 15.4 g/dL (14.0-18.0); LYMPHOCYTES % 11.1 % (20.0-50.0); MEAN CORPUSCULAR HEMOGLOBIN 28.2 pg (28.0-32.0); MEAN CORPUSCULAR VOLUME 88.6 fL (80.0-94.0); MEAN PLATELET VOLUME 9.2 fl (7.4-10.4); MONOCYTES % 9.8 % (2.0-8.0); NEUTROPHILS % 77.4 % (40.0-76.0); PLATELET 152 x1000/uL (130-400); RED BLOOD CELL COUNT 5.47 mill/uL (4.7-6.1); RED CELL DISTRIBUTION WIDTH 18.9 % (11.6-14.6)
[2022-05-01 06:18] LABS: CHLORIDE 96 mEq/L (98-107)
[2022-05-01] MEDS: CARVEDILOL 6.25 MG TABLET NG SCH ×2 (09:00→21:00)
[2022-05-01 09:08] LABS: BG BASE EXCESS 6.8 mmol/L (-2.0-2.0); BG CARBOXYHEMOGLOBIN 0.1 % (0.5-1.5); BG DEOXYHEMOGLOBIN 2.8 % (0.0-5.0); BG HCO3 ACT 32.5 mmol/L (22.0-26.0); BG METHEMOGLOBIN 0.3 % (0.0-1.5); BG OXYGEN SATURATION 97.2 % (92.0-98.5); BG OXYHEMOGLOBIN 96.8 % (94.0-97.0); BG PCO2 49.8 mmHg (35.0-45.0); BG PH 7.433 (7.350-7.450); BG PO2 88.6 mmHg (75.0-100.0); BG SAMPLE SITE RIGHT RADIAL; BG TOTAL HEMOGLOBIN 15.9 g/dL (12.0-18.0); BG VENT MODE VENT - AC
[2022-05-01] MEDS: PANTOPRAZOLE SODIUM 40 MG/VIAL IV SCH (09:33)
[2022-05-01] MEDS: SPIRONOLACTONE 25MG TABLET NG SCH (09:34)
[2022-05-01] MEDS: DOCUSATE SODIUM SUGAR FREE 100MG/10ML UDC NG SCH (09:34)
[2022-05-01] MEDS: FLUOXETINE HCL 20MG CAPSULE NG SCH (09:35)
[2022-05-01 11:57] LABS: BG FRACTION INSPIRED OXYGEN 100
[2022-05-01] MEDS ORDERED: LACTULOSE 20G/30ML UDC PO PRN (15:30)
[2022-05-01 16:17] LABS: BG BASE EXCESS 6.8 mmol/L (-2.0-2.0); BG CARBOXYHEMOGLOBIN 1.3 % (0.5-1.5); BG DEOXYHEMOGLOBIN 5.6 % (0.0-5.0); BG FRACTION INSPIRED OXYGEN 50; BG HCO3 ACT 34.6 mmol/L (22.0-26.0); BG METHEMOGLOBIN 0.5 % (0.0-1.5); BG OXYGEN SATURATION 94.3 % (92.0-98.5); BG OXYHEMOGLOBIN 92.6 % (94.0-97.0); BG PCO2 61.2 mmHg (35.0-45.0); BG PO2 70.1 mmHg (75.0-100.0); BG SAMPLE SITE LEFT RADIAL; BG TOTAL HEMOGLOBIN 16.7 g/dL (12.0-18.0); BG VENT MODE VENT - CPAP
[2022-05-01] MEDS ORDERED: LORAZEPAM 2MG/ML CPJ IV PRN (16:45)
[2022-05-01] MEDS: DIGOXIN 500MCG/2ML AMP IV SCH (18:13)
[2022-05-02] VITALS (56 sets, daily range): BP systolic 93–136; BP diastolic 40–90
[2022-05-02] MEDS: FUROSEMIDE 40MG/4ML VIAL IVP SCH ×2 (01:24→12:40)
[2022-05-02] MEDS: IPRATROPIUM/ALBUTEROL 0.5-3(2.5)MG/3ML NEB HHN SCH ×3 (01:52→20:33)
[2022-05-02] MEDS: FERROUS SULFATE 325MG TABLET PO SCH ×3 (05:22→18:55)
[2022-05-02] MEDS: MIDODRINE HCL 5MG TABLET PO SCH ×3 (05:23→23:05)
[2022-05-02] MEDS: SODIUM CHLORIDE 0.9% INJ 3ML FLUSH IVF SCH ×3 (05:24→22:00)
[2022-05-02] MEDS: DILTIAZEM HCL 30MG TABLET NG SCH ×3 (05:24→22:00)
[2022-05-02] MEDS: ENOXAPARIN 100MG/ML SYR SUBCUT SCH ×2 (05:24→18:56)
[2022-05-02 05:53] LABS: BASOPHILS % 0.4 % (0.0-2.0); EOSINOPHILS % 1.1 % (0.0-5.0); HEMATOCRIT. 48.2 % (42.0-52.0); HEMOGLOBIN. 15.4 g/dL (14.0-18.0); LYMPHOCYTES % 12.2 % (20.0-50.0); MEAN CORPUSCULAR HEMOGLOBIN 28.1 pg (28.0-32.0); MEAN CORPUSCULAR VOLUME 88.1 fL (80.0-94.0); MEAN PLATELET VOLUME 8.9 fl (7.4-10.4); NEUTROPHILS % 75.3 % (40.0-76.0); PLATELET 156 x1000/uL (130-400); RED BLOOD CELL COUNT 5.47 mill/uL (4.7-6.1); RED CELL DISTRIBUTION WIDTH 18.8 % (11.6-14.6)
[2022-05-02 05:59] LABS: CHLORIDE 96 mEq/L (98-107)
[2022-05-02 08:29] LABS: BG BASE EXCESS 8.5 mmol/L (-2.0-2.0); BG CARBOXYHEMOGLOBIN 1.1 % (0.5-1.5); BG DEOXYHEMOGLOBIN 6.7 % (0.0-5.0); BG FRACTION INSPIRED OXYGEN 50; BG HCO3 ACT 34.6 mmol/L (22.0-26.0); BG METHEMOGLOBIN 0.2 % (0.0-1.5); BG OXYGEN SATURATION 93.2 % (92.0-98.5); BG PCO2 52.5 mmHg (35.0-45.0); BG PH 7.437 (7.350-7.450); BG PO2 64.9 mmHg (75.0-100.0); BG SAMPLE SITE RIGHT BRACHIAL; BG TOTAL HEMOGLOBIN 16.3 g/dL (12.0-18.0); BG VENT MODE VENT - AC
[2022-05-02] MEDS: CARVEDILOL 6.25 MG TABLET NG SCH ×2 (09:00→21:00)
[2022-05-02] MEDS: PANTOPRAZOLE SODIUM 40 MG/VIAL IV SCH (09:26)
[2022-05-02] MEDS: DOCUSATE SODIUM SUGAR FREE 100MG/10ML UDC NG SCH (09:27)
[2022-05-02] MEDS: SPIRONOLACTONE 25MG TABLET NG SCH (09:27)
[2022-05-02] MEDS: FLUOXETINE HCL 20MG CAPSULE NG SCH (09:27)
[2022-05-02 10:30] LABS: BG BASE EXCESS 9.2 mmol/L (-2.0-2.0); BG CARBOXYHEMOGLOBIN 1.4 % (0.5-1.5); BG DEOXYHEMOGLOBIN 11.1 % (0.0-5.0); BG FRACTION INSPIRED OXYGEN 50; BG METHEMOGLOBIN 0.4 % (0.0-1.5); BG OXYGEN SATURATION 88.7 % (92.0-98.5); BG OXYHEMOGLOBIN 87.1 % (94.0-97.0); BG PCO2 56.8 mmHg (35.0-45.0); BG PO2 54.2 mmHg (75.0-100.0); BG SAMPLE SITE RIGHT BRACHIAL; BG TOTAL HEMOGLOBIN 16.1 g/dL (12.0-18.0); BG VENT MODE VENT - CPAP
[2022-05-02] MEDS ORDERED: LORAZEPAM 2MG/ML CPJ IV PRN (12:00)
[2022-05-02] MEDS ORDERED: ACETAZOLAMIDE SODIUM 500MG/VIAL IV NR (14:00)
[2022-05-02] MEDS ORDERED: IPRATROPIUM/ALBUTEROL 0.5-3(2.5)MG/3ML NEB HHN PRN (16:15)
[2022-05-02] MEDS: DIGOXIN 500MCG/2ML AMP IV SCH (18:55)
[2022-05-02 21:58] LABS: BG BASE EXCESS 8.7 mmol/L (-2.0-2.0); BG CARBOXYHEMOGLOBIN 1.3 % (0.5-1.5); BG DEOXYHEMOGLOBIN 7.1 % (0.0-5.0); BG FRACTION INSPIRED OXYGEN 50; BG HCO3 ACT 36.1 mmol/L (22.0-26.0); BG METHEMOGLOBIN 0.1 % (0.0-1.5); BG OXYGEN SATURATION 92.8 % (92.0-98.5); BG OXYHEMOGLOBIN 91.5 % (94.0-97.0); BG PCO2 60.3 mmHg (35.0-45.0); BG PH 7.395 (7.350-7.450); BG PO2 65.3 mmHg (75.0-100.0); BG TOTAL HEMOGLOBIN 15.9 g/dL (12.0-18.0); BG TOTAL RESPIRATORY RATE 20 b/min; BG VENT MODE MASK - BIPAP
[2022-05-03] VITALS (28 sets, daily range): BP systolic 78–150; BP diastolic 48–85
[2022-05-03] MEDS: FUROSEMIDE 40MG/4ML VIAL IVP SCH ×2 (00:46→12:20)
[2022-05-03] MEDS: IPRATROPIUM/ALBUTEROL 0.5-3(2.5)MG/3ML NEB HHN SCH ×3 (01:52→12:49)
[2022-05-03 05:36] LABS: BASOPHILS % 0.5 % (0.0-2.0); EOSINOPHILS % 2.1 % (0.0-5.0); HEMOGLOBIN. 15.1 g/dL (14.0-18.0); LYMPHOCYTES % 19.4 % (20.0-50.0); MEAN CORPUSCULAR HEMOGLOBIN 28.2 pg (28.0-32.0); MEAN CORPUSCULAR VOLUME 89.9 fL (80.0-94.0); MEAN PLATELET VOLUME 9.4 fl (7.4-10.4); MONOCYTES % 11.6 % (2.0-8.0); NEUTROPHILS % 66.4 % (40.0-76.0); PLATELET 160 x1000/uL (130-400); RED BLOOD CELL COUNT 5.34 mill/uL (4.7-6.1); RED CELL DISTRIBUTION WIDTH 18.7 % (11.6-14.6)
[2022-05-03 05:43] LABS: CHLORIDE 96 mEq/L (98-107)
[2022-05-03] MEDS: SODIUM CHLORIDE 0.9% INJ 3ML FLUSH IVF SCH ×2 (06:00→13:57)
[2022-05-03] MEDS: DILTIAZEM HCL 30MG TABLET NG SCH (06:00)
[2022-05-03] MEDS: ENOXAPARIN 100MG/ML SYR SUBCUT SCH ×2 (07:33→18:13)
[2022-05-03] MEDS: MIDODRINE HCL 5MG TABLET PO SCH ×3 (07:34→22:00)
[2022-05-03] MEDS: FERROUS SULFATE 325MG TABLET PO SCH ×3 (07:34→17:21)
[2022-05-03] MEDS ORDERED: POTASSIUM CHLORIDE 20MEQ TABLET SR PO SCH (08:00)
[2022-05-03] MEDS: PANTOPRAZOLE SODIUM 40 MG/VIAL IV SCH (08:53)
[2022-05-03] MEDS: SPIRONOLACTONE 25MG TABLET NG SCH (08:53)
[2022-05-03] MEDS: CARVEDILOL 6.25 MG TABLET NG SCH (08:54)
[2022-05-03] MEDS: DOCUSATE SODIUM SUGAR FREE 100MG/10ML UDC NG SCH (08:54)
[2022-05-03] MEDS: FLUOXETINE HCL 20MG CAPSULE NG SCH (08:54)
[2022-05-03 09:05] LABS: BG BASE EXCESS 8.2 mmol/L (-2.0-2.0); BG CARBOXYHEMOGLOBIN 0.9 % (0.5-1.5); BG DEOXYHEMOGLOBIN 5.2 % (0.0-5.0); BG FRACTION INSPIRED OXYGEN 50; BG HCO3 ACT 37.3 mmol/L (22.0-26.0); BG METHEMOGLOBIN 0.3 % (0.0-1.5); BG OXYGEN SATURATION 94.7 % (92.0-98.5); BG OXYHEMOGLOBIN 93.6 % (94.0-97.0); BG PH 7.332 (7.350-7.450); BG PO2 77.2 mmHg (75.0-100.0); BG SAMPLE SITE RIGHT RADIAL; BG TOTAL HEMOGLOBIN 15.3 g/dL (12.0-18.0); BG TOTAL RESPIRATORY RATE 20 b/min; BG VENT MODE MASK - BIPAP
[2022-05-03 13:23] LABS: BG BASE EXCESS 9.5 mmol/L (-2.0-2.0); BG CARBOXYHEMOGLOBIN 0.9 % (0.5-1.5); BG DEOXYHEMOGLOBIN 4.7 % (0.0-5.0); BG FRACTION INSPIRED OXYGEN 50; BG HCO3 ACT 36.8 mmol/L (22.0-26.0); BG METHEMOGLOBIN 0.1 % (0.0-1.5); BG OXYGEN SATURATION 95.3 % (92.0-98.5); BG OXYHEMOGLOBIN 94.3 % (94.0-97.0); BG PCO2 60.2 mmHg (35.0-45.0); BG PH 7.404 (7.350-7.450); BG SAMPLE SITE LEFT RADIAL; BG TOTAL HEMOGLOBIN 15.5 g/dL (12.0-18.0); BG TOTAL RESPIRATORY RATE 30 b/min; BG VENT MODE MASK - BIPAP
[2022-05-03 18:03] LABS: PHOSPHORUS 2.9 mg/dL (2.5-4.9)
[2022-05-03] MEDS: DIGOXIN 500MCG/2ML AMP IV SCH (18:13)
[2022-05-03] MEDS ORDERED: DIGOXIN 500MCG/2ML AMP IV NR ×2 (18:45→22:00)
[2022-05-03] MEDS ORDERED: POTASSIUM CHLORIDE 20MEQ/PACKET NG NR (19:20)
[2022-05-03] MEDS ORDERED: ALBUTEROL (0.083%) 2.5MG/3ML NEB HHN PRN (19:45)
[2022-05-03] MEDS ORDERED: IPRATROPIUM BROMIDE (0.02%) 0.5MG/2.5ML NEB HHN PRN (19:45)
[2022-05-03] MEDS ORDERED: CARVEDILOL 6.25 MG TABLET NG SCH (21:00)
[2022-05-03] MEDS: DIGOXIN 500MCG/2ML AMP IV NR (23:06)
[2022-05-04] VITALS (13 sets, daily range): BP systolic 97–123; BP diastolic 53–81
[2022-05-04] MEDS: SODIUM CHLORIDE 0.9% INJ 3ML FLUSH IVF SCH ×4 (00:12→20:54)
[2022-05-04] MEDS: FUROSEMIDE 40MG/4ML VIAL IVP SCH ×2 (00:16→13:52)
[2022-05-04] MEDS: ALBUTEROL (0.083%) 2.5MG/3ML NEB HHN SCH ×4 (02:43→20:58)
[2022-05-04] MEDS: IPRATROPIUM BROMIDE (0.02%) 0.5MG/2.5ML NEB HHN SCH ×4 (02:43→20:58)
[2022-05-04] MEDS: DIGOXIN 500MCG/2ML AMP IV NR (02:53)
[2022-05-04] MEDS: MIDODRINE HCL 5MG TABLET PO SCH ×3 (05:32→22:00)
[2022-05-04] MEDS: ENOXAPARIN 100MG/ML SYR SUBCUT SCH ×2 (05:36→17:50)
[2022-05-04] MEDS ORDERED: PANTOPRAZOLE 40MG DR TABLET PO SCH (06:30)
[2022-05-04] MEDS: FERROUS SULFATE 325MG TABLET PO SCH ×3 (08:00→17:51)
[2022-05-04 08:23] LABS: CHLORIDE 102 mEq/L (98-107)
[2022-05-04 08:27] LABS: PHOSPHORUS 3.5 mg/dL (2.5-4.9)
[2022-05-04] MEDS: FLUOXETINE HCL 20MG CAPSULE NG SCH (09:00)
[2022-05-04] MEDS: DOCUSATE SODIUM SUGAR FREE 100MG/10ML UDC NG SCH (09:00)
[2022-05-04] MEDS: SPIRONOLACTONE 25MG TABLET NG SCH (09:00)
[2022-05-04] MEDS: PANTOPRAZOLE SODIUM 40 MG/VIAL IV SCH (11:34)
[2022-05-04 13:29] LABS: BG BASE EXCESS 8.3 mmol/L (-2.0-2.0); BG CARBOXYHEMOGLOBIN 1.3 % (0.5-1.5); BG FRACTION INSPIRED OXYGEN 32; BG HCO3 ACT 37.4 mmol/L (22.0-26.0); BG METHEMOGLOBIN 0.3 % (0.0-1.5); BG OXYGEN SATURATION 85.8 % (92.0-98.5); BG OXYHEMOGLOBIN 84.4 % (94.0-97.0); BG PCO2 72.6 mmHg (35.0-45.0); BG PO2 51.6 mmHg (75.0-100.0); BG SAMPLE SITE RIGHT RADIAL; BG TOTAL HEMOGLOBIN 15.1 g/dL (12.0-18.0); BG VENT MODE NASAL CANNULA
[2022-05-04] MEDS: DIGOXIN 500MCG/2ML AMP IV SCH (17:50)
[2022-05-04] MEDS ORDERED: DIGOXIN 125MCG TABLET PO SCH (18:00)
[2022-05-04] MEDS ORDERED: LORAZEPAM 2MG/ML CPJ IV PRN (20:00)
[2022-05-04] MEDS: CARVEDILOL 3.125 MG TABLET PO SCH (21:00)
[2022-05-05] VITALS (13 sets, daily range): BP systolic 111–155; BP diastolic 55–125
[2022-05-05] MEDS: FUROSEMIDE 100MG/10ML VIAL IVP SCH ×2 (00:34→12:30)
[2022-05-05] MEDS: ALBUTEROL (0.083%) 2.5MG/3ML NEB HHN SCH ×4 (00:59→21:01)
[2022-05-05] MEDS: IPRATROPIUM BROMIDE (0.02%) 0.5MG/2.5ML NEB HHN SCH ×4 (01:00→21:01)
[2022-05-05] MEDS: ENOXAPARIN 100MG/ML SYR SUBCUT SCH ×2 (05:19→17:11)
[2022-05-05] MEDS: SODIUM CHLORIDE 0.9% INJ 3ML FLUSH IVF SCH ×3 (05:19→21:53)
[2022-05-05] MEDS: MIDODRINE HCL 5MG TABLET PO SCH ×3 (05:19→21:53)
[2022-05-05 07:10] LABS: BASOPHILS % 0.4 % (0.0-2.0); EOSINOPHILS % 2.5 % (0.0-5.0); HEMATOCRIT. 49.9 % (42.0-52.0); HEMOGLOBIN. 15.3 g/dL (14.0-18.0); LYMPHOCYTES % 19.7 % (20.0-50.0); MEAN CORPUSCULAR HEMOGLOBIN 28.1 pg (28.0-32.0); MEAN CORPUSCULAR VOLUME 91.3 fL (80.0-94.0); MEAN PLATELET VOLUME 8.5 fl (7.4-10.4); MONOCYTES % 9.1 % (2.0-8.0); NEUTROPHILS % 68.3 % (40.0-76.0); PLATELET 158 x1000/uL (130-400); RED BLOOD CELL COUNT 5.46 mill/uL (4.7-6.1); RED CELL DISTRIBUTION WIDTH 18.4 % (11.6-14.6)
[2022-05-05 07:55] LABS: CHLORIDE 98 mEq/L (98-107)
[2022-05-05] MEDS: FERROUS SULFATE 325MG TABLET PO SCH ×3 (08:00→17:11)
[2022-05-05] MEDS ORDERED: POTASSIUM CHLORIDE INJ 40 MEQ in DEXT 5% WATER 250 ML IV ONE (08:15)
[2022-05-05] MEDS: SPIRONOLACTONE 25MG TABLET NG SCH (09:00)
[2022-05-05] MEDS: DOCUSATE SODIUM SUGAR FREE 100MG/10ML UDC NG SCH (09:00)
[2022-05-05] MEDS: FLUOXETINE HCL 20MG CAPSULE NG SCH (09:00)
[2022-05-05] MEDS ORDERED: DEXT 5%/0.45% NACL KCL 20MEQ/L 1,000 ML IV SCH (09:00)
[2022-05-05] MEDS: CARVEDILOL 3.125 MG TABLET PO SCH ×2 (09:00→21:53)
[2022-05-05] MEDS: KCL 20MEQ/100ML X 2 FOR TOTAL KCL 40MEQ/200ML IV SCH ×2 (09:20→12:30)
[2022-05-05] MEDS: PANTOPRAZOLE SODIUM 40 MG/VIAL IV SCH (09:20)
[2022-05-05] MEDS ORDERED: FUROSEMIDE 100MG/10ML VIAL IVP NR (15:30)
[2022-05-05] MEDS ORDERED: SODIUM CHLORIDE 0.9% 1,000 ML IV SCH (15:45)
[2022-05-05] MEDS: DOBUTAMINE 250MG PREMIX 250 ML IV SCH ×2 (16:37→22:31)
[2022-05-05 16:48] LABS: BG BASE EXCESS 14.3 mmol/L (-2.0-2.0); BG CARBOXYHEMOGLOBIN 1.5 % (0.5-1.5); BG DEOXYHEMOGLOBIN 19.8 % (0.0-5.0); BG FRACTION INSPIRED OXYGEN 40; BG HCO3 ACT 43.8 mmol/L (22.0-26.0); BG METHEMOGLOBIN 0.4 % (0.0-1.5); BG OXYGEN SATURATION 79.8 % (92.0-98.5); BG OXYHEMOGLOBIN 78.3 % (94.0-97.0); BG PCO2 75.3 mmHg (35.0-45.0); BG PH 7.383 (7.350-7.450); BG PO2 42.1 mmHg (75.0-100.0); BG SAMPLE SITE RIGHT RADIAL; BG TOTAL HEMOGLOBIN 16.1 g/dL (12.0-18.0); BG VENT MODE MASK - BIPAP
[2022-05-05] MEDS: DIGOXIN 500MCG/2ML AMP IV SCH (17:11)
[2022-05-06] VITALS (78 sets, daily range): BP systolic 67–201; BP diastolic 41–129
[2022-05-06] MEDS: FUROSEMIDE 100MG/10ML VIAL IVP SCH ×2 (00:04→12:00)
[2022-05-06] MEDS ORDERED: NOREPINEPHRINE 32 MG in DEXT 5% WATER 218 ML IV PRN (03:15)
[2022-05-06 04:26] LABS: BG CARBOXYHEMOGLOBIN 1.2 % (0.5-1.5); BG DEOXYHEMOGLOBIN 0.1 % (0.0-5.0); BG FRACTION INSPIRED OXYGEN 100; BG METHEMOGLOBIN 0.4 % (0.0-1.5); BG OXYGEN SATURATION 99.9 % (92.0-98.5); BG OXYHEMOGLOBIN 98.3 % (94.0-97.0); BG PCO2 77.4 mmHg (35.0-45.0); BG PH 7.382 (7.350-7.450); BG PO2 374.2 mmHg (75.0-100.0); BG SAMPLE SITE RIGHT FEMORAL; BG TOTAL HEMOGLOBIN 16.7 g/dL (12.0-18.0); BG VENT MODE VENT - AC
[2022-05-06] MEDS: MIDODRINE HCL 5MG TABLET PO SCH ×3 (05:20→21:54)
[2022-05-06] MEDS: SODIUM CHLORIDE 0.9% INJ 3ML FLUSH IVF SCH ×3 (05:21→21:56)
[2022-05-06 05:42] LABS: HEMATOCRIT. 51.6 % (42.0-52.0); HEMOGLOBIN. 16.1 g/dL (14.0-18.0); MEAN CORPUSCULAR HEMOGLOBIN 27.9 pg (28.0-32.0); MEAN CORPUSCULAR VOLUME 89.5 fL (80.0-94.0); MEAN PLATELET VOLUME 8.4 fl (7.4-10.4); PLATELET 191 x1000/uL (130-400); RED BLOOD CELL COUNT 5.76 mill/uL (4.7-6.1); RED CELL DISTRIBUTION WIDTH 18.2 % (11.6-14.6)
[2022-05-06] MEDS: DOBUTAMINE 250MG PREMIX 250 ML IV SCH (05:50)
[2022-05-06] MEDS: ENOXAPARIN 100MG/ML SYR SUBCUT SCH ×2 (06:00→18:35)
[2022-05-06 07:11] LABS: CHLORIDE 91 mEq/L (98-107)
[2022-05-06 07:14] LABS: PLATELET ESTIMATE NORMAL
[2022-05-06] MEDS ORDERED: METOLAZONE 2.5MG TABLET PO NR (07:30)
[2022-05-06 07:39] LABS: BG BASE EXCESS 13.7 mmol/L (-2.0-2.0); BG CARBOXYHEMOGLOBIN 1.2 % (0.5-1.5); BG DEOXYHEMOGLOBIN 0.6 % (0.0-5.0); BG FRACTION INSPIRED OXYGEN 50; BG HCO3 ACT 38.7 mmol/L (22.0-26.0); BG METHEMOGLOBIN 0.6 % (0.0-1.5); BG OXYGEN SATURATION 99.4 % (92.0-98.5); BG OXYHEMOGLOBIN 97.6 % (94.0-97.0); BG PCO2 47.5 mmHg (35.0-45.0); BG PH 7.529 (7.350-7.450); BG PO2 160.4 mmHg (75.0-100.0); BG SAMPLE SITE RIGHT BRACHIAL; BG VENT MODE VENT - AC
[2022-05-06] MEDS ORDERED: FENTANYL 2500MCG/250ML PMX 250 ML IV PRN ×2 (08:00→13:00)
[2022-05-06] MEDS: ALBUTEROL (0.083%) 2.5MG/3ML NEB HHN SCH (08:11)
[2022-05-06] MEDS: IPRATROPIUM BROMIDE (0.02%) 0.5MG/2.5ML NEB HHN SCH ×2 (08:11→13:44)
[2022-05-06] MEDS ORDERED: SUCCINYLCHOLINE CHLORIDE 200MG/10ML IV ONE (08:16)
[2022-05-06] MEDS ORDERED: VECURONIUM BROMIDE 10 MG/VIAL IV ONE (08:16)
[2022-05-06] MEDS ORDERED: LORAZEPAM 2MG/ML CPJ ONE (08:56)
[2022-05-06] MEDS ORDERED: MIDAZOLAM HCL 100 MG in SODIUM CHLORIDE 0.9% 80 ML IV PRN (09:00)
[2022-05-06] MEDS ORDERED: KCL 20MEQ/100ML X 2 FOR TOTAL KCL 40MEQ/200ML IV SCH (09:00)
[2022-05-06] MEDS: DOCUSATE SODIUM SUGAR FREE 100MG/10ML UDC NG SCH (09:00)
[2022-05-06] MEDS ORDERED: PROPOFOL 10MG/ML 100ML 100 ML IV PRN ×2 (09:00)
[2022-05-06] MEDS ORDERED: POTASSIUM CHLORIDE INJ 40 MEQ in DEXT 5% WATER 250 ML IV ONE (09:00)
[2022-05-06] MEDS ORDERED: LORAZEPAM 2MG/ML CPJ IV NR (09:00)
[2022-05-06] MEDS: FAMOTIDINE 20MG/2ML VIAL IV SCH ×2 (09:00→21:55)
[2022-05-06] MEDS: FERROUS SULFATE 325MG TABLET PO SCH ×3 (09:30→18:57)
[2022-05-06] MEDS ORDERED: EPINEPHRINE 0.1MG/ML (1:10,000) 10ML SYR ONE (09:35)
[2022-05-06] MEDS: FLUOXETINE HCL 20MG CAPSULE NG SCH (09:35)
[2022-05-06] MEDS: SPIRONOLACTONE 25MG TABLET NG SCH (09:35)
[2022-05-06] MEDS ORDERED: MAGNESIUM SULFATE 4G IN WATER 100ML PREMIX IV ONE (09:35)
[2022-05-06] MEDS: CARVEDILOL 3.125 MG TABLET PO SCH ×2 (09:35→21:00)
[2022-05-06] MEDS ORDERED: AMIODARONE HCL 50MG/ML 3ML VIAL IV ONE (09:35)
[2022-05-06] MEDS ORDERED: SODIUM BICARBONATE 8.4% 1 MEQ/ML 50ML SYR IV ONE (09:35)
[2022-05-06] MEDS ORDERED: LEVETIRACETAM 1000MG PREMIX 100 ML IV NR (11:00)
[2022-05-06] MEDS ORDERED: POTASSIUM CHLORIDE 20MEQ TABLET SR PO NR (12:00)
[2022-05-06] MEDS ORDERED: PHENYLEPHRINE 100 MG in DEXT 5% WATER 240 ML IV PRN (12:30)
[2022-05-06] MEDS ORDERED: KCL 20MEQ/100ML PREMIX 100 ML IV NR (13:00)
[2022-05-06] MEDS: ESMOLOL 2500MG PREMIX 250 ML IV SCH ×2 (14:00→21:57)
[2022-05-06] MEDS ORDERED: DIGOXIN 500MCG/2ML AMP IV NR (15:45)
[2022-05-06] MEDS: DIGOXIN 500MCG/2ML AMP IV SCH (18:00)
[2022-05-06] MEDS: LEVETIRACETAM 500MG PREMIX 100 ML IV SCH (21:54)
[2022-05-06] MEDS: POLYVINYL ALCOHOL OPHTH DROPS 15ML BOTHEYE SCH (21:54)
[2022-05-07] VITALS (84 sets, daily range): BP systolic 78–131; BP diastolic 50–90
[2022-05-07] MEDS: FUROSEMIDE 100MG/10ML VIAL IVP SCH (00:14)
[2022-05-07] MEDS: ALBUTEROL (0.083%) 2.5MG/3ML NEB HHN SCH ×4 (02:28→21:26)
[2022-05-07] MEDS: IPRATROPIUM BROMIDE (0.02%) 0.5MG/2.5ML NEB HHN SCH ×4 (02:28→21:26)
[2022-05-07] MEDS: POLYVINYL ALCOHOL OPHTH DROPS 15ML BOTHEYE SCH ×4 (03:57→20:54)
[2022-05-07] MEDS: ENOXAPARIN 100MG/ML SYR SUBCUT SCH (05:05)
[2022-05-07] MEDS: SODIUM CHLORIDE 0.9% INJ 3ML FLUSH IVF SCH ×3 (05:05→21:23)
[2022-05-07] MEDS: MIDODRINE HCL 5MG TABLET PO SCH ×3 (05:05→22:26)
[2022-05-07 05:45] LABS: BASOPHILS % 0.1 % (0.0-2.0); HEMATOCRIT. 51.3 % (42.0-52.0); LYMPHOCYTES % 10.1 % (20.0-50.0); MEAN CORPUSCULAR HEMOGLOBIN 27.5 pg (28.0-32.0); MEAN CORPUSCULAR VOLUME 87.8 fL (80.0-94.0); MEAN PLATELET VOLUME 9.5 fl (7.4-10.4); MONOCYTES % 6.8 % (2.0-8.0); PLATELET 258 x1000/uL (130-400); RED BLOOD CELL COUNT 5.84 mill/uL (4.7-6.1); RED CELL DISTRIBUTION WIDTH 18.8 % (11.6-14.6)
[2022-05-07] MEDS ORDERED: KCL 20MEQ/100ML PREMIX 100 ML IV SCH (08:00)
[2022-05-07] MEDS: SPIRONOLACTONE 25MG TABLET NG SCH (08:35)
[2022-05-07] MEDS: FERROUS SULFATE 325MG TABLET PO SCH ×3 (08:35→17:38)
[2022-05-07] MEDS: FAMOTIDINE 20MG/2ML VIAL IV SCH ×2 (08:36→20:53)
[2022-05-07] MEDS: DOCUSATE SODIUM SUGAR FREE 100MG/10ML UDC NG SCH (08:36)
[2022-05-07] MEDS: FLUOXETINE HCL 20MG CAPSULE NG SCH (08:36)
[2022-05-07] MEDS: LEVETIRACETAM 500MG PREMIX 100 ML IV SCH ×2 (08:38→20:53)
[2022-05-07] MEDS: CARVEDILOL 3.125 MG TABLET PO SCH ×2 (08:39→20:54)
[2022-05-07 09:55] LABS: BG CARBOXYHEMOGLOBIN 1.2 % (0.5-1.5); BG DEOXYHEMOGLOBIN 4.9 % (0.0-5.0); BG FRACTION INSPIRED OXYGEN 40; BG HCO3 ACT 36.7 mmol/L (22.0-26.0); BG METHEMOGLOBIN 0.4 % (0.0-1.5); BG OXYHEMOGLOBIN 93.5 % (94.0-97.0); BG PCO2 41.4 mmHg (35.0-45.0); BG PH 7.565 (7.350-7.450); BG PO2 69.5 mmHg (75.0-100.0); BG TOTAL HEMOGLOBIN 17.2 g/dL (12.0-18.0); BG VENT MODE VENT - AC
[2022-05-07] MEDS: ESMOLOL 2500MG PREMIX 250 ML IV SCH ×2 (11:12→16:36)
[2022-05-07] MEDS ORDERED: POTASSIUM CHLORIDE 20MEQ TABLET SR PO NR ×2 (11:45→20:00)
[2022-05-07] MEDS: PIPERACILLIN/TAZOBACTAM 3.375 G in DEXTROSE 5% WATER 50 ML IV SCH ×2 (16:36→22:26)
[2022-05-07] MEDS: ENOXAPARIN 80MG/0.8ML SYR SUBCUT SCH (17:38)
[2022-05-07] MEDS: DIGOXIN 500MCG/2ML AMP IV SCH (17:38)
[2022-05-07 22:11] LABS: DIGOXIN 8.1 ng/mL (0.9-2.0)
[2022-05-07] MEDS ORDERED: AMIODARONE HCL 150 MG in DEXT 5% WATER 100 ML IV NR (22:30)
[2022-05-07] MEDS: AMIODARONE HCL 900 MG in DEXT 5% WATER 482 ML IV PRN (23:09)
[2022-05-07] MEDS: FUROSEMIDE 40MG/4ML VIAL IVP SCH (23:11)
[2022-05-08] VITALS (91 sets, daily range): BP systolic 63–136; BP diastolic 32–103
[2022-05-08] MEDS: ESMOLOL 2500MG PREMIX 250 ML IV SCH (01:34)
[2022-05-08] MEDS: POLYVINYL ALCOHOL OPHTH DROPS 15ML BOTHEYE SCH ×4 (02:45→20:54)
[2022-05-08] MEDS: SODIUM CHLORIDE 0.9% INJ 3ML FLUSH IVF SCH ×3 (04:55→20:55)
[2022-05-08] MEDS: MIDODRINE HCL 5MG TABLET PO SCH ×3 (05:01→20:55)
[2022-05-08] MEDS: ENOXAPARIN 80MG/0.8ML SYR SUBCUT SCH ×2 (05:02→18:00)
[2022-05-08] MEDS: PIPERACILLIN/TAZOBACTAM 3.375 G in DEXTROSE 5% WATER 50 ML IV SCH ×3 (05:02→20:54)
[2022-05-08 06:38] LABS: HEMOGLOBIN. 15.3 g/dL (14.0-18.0); MEAN CORPUSCULAR VOLUME 87.8 fL (80.0-94.0); MEAN PLATELET VOLUME 9.2 fl (7.4-10.4); PLATELET 211 x1000/uL (130-400); RED BLOOD CELL COUNT 5.46 mill/uL (4.7-6.1); RED CELL DISTRIBUTION WIDTH 18.6 % (11.6-14.6)
[2022-05-08 06:43] LABS: CHLORIDE 99 mEq/L (98-107)
[2022-05-08] MEDS ORDERED: MAGNESIUM 2 G PREMIX 50 ML IV ONE (08:00)
[2022-05-08] MEDS: LEVETIRACETAM 500MG PREMIX 100 ML IV SCH ×2 (08:45→20:54)
[2022-05-08] MEDS: KCL 20MEQ/100ML PREMIX 100 ML IV SCH ×2 (08:45→10:31)
[2022-05-08] MEDS: DOCUSATE SODIUM SUGAR FREE 100MG/10ML UDC NG SCH (08:45)
[2022-05-08] MEDS: SPIRONOLACTONE 25MG TABLET NG SCH (08:46)
[2022-05-08] MEDS: FERROUS SULFATE 325MG TABLET PO SCH ×3 (08:46→18:18)
[2022-05-08] MEDS: FLUOXETINE HCL 20MG CAPSULE NG SCH (08:46)
[2022-05-08] MEDS: CARVEDILOL 3.125 MG TABLET PO SCH ×2 (08:46→20:55)
[2022-05-08] MEDS: FAMOTIDINE 20MG/2ML VIAL IV SCH ×2 (08:51→20:55)
[2022-05-08 09:10] LABS: BG BASE EXCESS 16.4 mmol/L (-2.0-2.0); BG CARBOXYHEMOGLOBIN 1.4 % (0.5-1.5); BG DEOXYHEMOGLOBIN 2.6 % (0.0-5.0); BG FRACTION INSPIRED OXYGEN 40; BG HCO3 ACT 40.4 mmol/L (22.0-26.0); BG METHEMOGLOBIN 0.5 % (0.0-1.5); BG OXYGEN SATURATION 97.3 % (92.0-98.5); BG OXYHEMOGLOBIN 95.5 % (94.0-97.0); BG PCO2 43.8 mmHg (35.0-45.0); BG PH 7.583 (7.350-7.450); BG PO2 84.8 mmHg (75.0-100.0); BG SAMPLE SITE LEFT RADIAL; BG TOTAL HEMOGLOBIN 16.3 g/dL (12.0-18.0); BG TOTAL RESPIRATORY RATE 18 b/min; BG VENT MODE VENT - AC
[2022-05-08] MEDS ORDERED: MAGNESIUM 2 G PREMIX 50 ML IV SCH (10:00)
[2022-05-08] MEDS ORDERED: SODIUM BICARBONATE 8.4% 1 MEQ/ML 50ML SYR IV ONE (10:14)
[2022-05-08] MEDS ORDERED: AMIODARONE HCL 50MG/ML 3ML VIAL IV ONE (10:14)
[2022-05-08] MEDS ORDERED: EPINEPHRINE 0.1MG/ML (1:10,000) 10ML SYR ONE (10:14)
[2022-05-08] MEDS ORDERED: MAGNESIUM SULFATE 4G IN WATER 100ML PREMIX IV ONE (10:14)
[2022-05-08 10:18] LABS: PLATELET ESTIMATE NORMAL
[2022-05-08] MEDS ORDERED: POTASSIUM CHLORIDE 20MEQ/PACKET PO NR (11:15)
[2022-05-08] MEDS: DOPAMINE 400MG/250ML PREMIX 250 ML IV PRN (12:06)
[2022-05-08] MEDS: FUROSEMIDE 40MG/4ML VIAL IVP SCH ×2 (13:13→23:48)
[2022-05-08] MEDS: IPRATROPIUM BROMIDE (0.02%) 0.5MG/2.5ML NEB HHN SCH ×2 (14:19→20:25)
[2022-05-08] MEDS: ALBUTEROL (0.083%) 2.5MG/3ML NEB HHN SCH ×2 (14:20→20:25)
[2022-05-08] MEDS: AMIODARONE HCL 900 MG in DEXT 5% WATER 482 ML IV PRN (20:59)
[2022-05-09] VITALS (57 sets, daily range): BP systolic 84–137; BP diastolic 52–97
[2022-05-09] MEDS: DOPAMINE 400MG/250ML PREMIX 250 ML IV PRN ×2 (00:47→16:35)
[2022-05-09] MEDS: ALBUTEROL (0.083%) 2.5MG/3ML NEB HHN SCH (02:13)
[2022-05-09] MEDS: IPRATROPIUM BROMIDE (0.02%) 0.5MG/2.5ML NEB HHN SCH (02:13)
[2022-05-09] MEDS: POLYVINYL ALCOHOL OPHTH DROPS 15ML BOTHEYE SCH ×4 (03:00→21:19)
[2022-05-09] MEDS: SODIUM CHLORIDE 0.9% INJ 3ML FLUSH IVF SCH ×3 (05:03→21:19)
[2022-05-09] MEDS: ENOXAPARIN 80MG/0.8ML SYR SUBCUT SCH ×2 (05:14→18:29)
[2022-05-09] MEDS: MIDODRINE HCL 5MG TABLET PO SCH ×3 (05:14→21:19)
[2022-05-09] MEDS: PIPERACILLIN/TAZOBACTAM 3.375 G in DEXTROSE 5% WATER 50 ML IV SCH ×3 (05:14→21:18)
[2022-05-09 06:53] LABS: BASOPHILS % 0.1 % (0.0-2.0); EOSINOPHILS % 0.5 % (0.0-5.0); HEMATOCRIT. 49.8 % (42.0-52.0); HEMOGLOBIN. 15.8 g/dL (14.0-18.0); MEAN CORPUSCULAR HEMOGLOBIN 27.6 pg (28.0-32.0); MEAN CORPUSCULAR VOLUME 86.8 fL (80.0-94.0); MEAN PLATELET VOLUME 9.4 fl (7.4-10.4); MONOCYTES % 4.3 % (2.0-8.0); NEUTROPHILS % 87.1 % (40.0-76.0); PLATELET 239 x1000/uL (130-400); RED BLOOD CELL COUNT 5.74 mill/uL (4.7-6.1)
[2022-05-09 07:04] LABS: CHLORIDE 99 mEq/L (98-107)
[2022-05-09 08:59] LABS: BG BASE EXCESS 11.7 mmol/L (-2.0-2.0); BG CARBOXYHEMOGLOBIN 0.9 % (0.5-1.5); BG DEOXYHEMOGLOBIN 9.3 % (0.0-5.0); BG FRACTION INSPIRED OXYGEN 50; BG HCO3 ACT 36.2 mmol/L (22.0-26.0); BG METHEMOGLOBIN 0.1 % (0.0-1.5); BG OXYGEN SATURATION 90.6 % (92.0-98.5); BG OXYHEMOGLOBIN 89.7 % (94.0-97.0); BG PCO2 45.3 mmHg (35.0-45.0); BG PH 7.521 (7.350-7.450); BG PO2 58.5 mmHg (75.0-100.0); BG SAMPLE SITE LEFT RADIAL; BG TOTAL HEMOGLOBIN 17.2 g/dL (12.0-18.0); BG VENT MODE VENT - AC
[2022-05-09] MEDS: SPIRONOLACTONE 25MG TABLET NG SCH (09:00)
[2022-05-09] MEDS: CARVEDILOL 3.125 MG TABLET PO SCH ×2 (09:00→21:18)
[2022-05-09] MEDS: FERROUS SULFATE 325MG TABLET PO SCH ×3 (09:00→18:28)
[2022-05-09] MEDS: DOCUSATE SODIUM SUGAR FREE 100MG/10ML UDC NG SCH (09:00)
[2022-05-09] MEDS: FLUOXETINE HCL 20MG CAPSULE NG SCH (09:01)
[2022-05-09] MEDS: FAMOTIDINE 20MG/2ML VIAL IV SCH ×2 (09:01→21:18)
[2022-05-09] MEDS: LEVETIRACETAM 500MG PREMIX 100 ML IV SCH ×2 (09:07→21:20)
[2022-05-09] MEDS: IPRATROPIUM/ALBUTEROL 0.5-3(2.5)MG/3ML NEB HHN SCH ×2 (14:21→20:19)
[2022-05-09] MEDS: FUROSEMIDE 40MG/4ML VIAL IVP SCH (15:08)
[2022-05-09] MEDS ORDERED: POTASSIUM CHLORIDE 20MEQ/PACKET PO NR (16:00)
[2022-05-10] VITALS (91 sets, daily range): BP systolic 92–139; BP diastolic 51–93
[2022-05-10] MEDS: FUROSEMIDE 40MG/4ML VIAL IVP SCH ×2 (00:06→12:49)
[2022-05-10] MEDS: AMIODARONE HCL 900 MG in DEXT 5% WATER 482 ML IV PRN (01:37)
[2022-05-10] MEDS: IPRATROPIUM/ALBUTEROL 0.5-3(2.5)MG/3ML NEB HHN SCH ×4 (01:52→20:56)
[2022-05-10] MEDS: POLYVINYL ALCOHOL OPHTH DROPS 15ML BOTHEYE SCH ×4 (03:23→21:18)
[2022-05-10 05:35] LABS: BASOPHILS % 0.2 % (0.0-2.0); EOSINOPHILS % 1.2 % (0.0-5.0); HEMATOCRIT. 52.2 % (42.0-52.0); HEMOGLOBIN. 16.6 g/dL (14.0-18.0); LYMPHOCYTES % 9.5 % (20.0-50.0); MEAN CORPUSCULAR HEMOGLOBIN 27.6 pg (28.0-32.0); MEAN CORPUSCULAR VOLUME 86.7 fL (80.0-94.0); MONOCYTES % 4.9 % (2.0-8.0); NEUTROPHILS % 84.2 % (40.0-76.0); PLATELET 278 x1000/uL (130-400); RED BLOOD CELL COUNT 6.02 mill/uL (4.7-6.1); RED CELL DISTRIBUTION WIDTH 18.8 % (11.6-14.6)
[2022-05-10] MEDS: ENOXAPARIN 80MG/0.8ML SYR SUBCUT SCH ×2 (06:19→17:41)
[2022-05-10] MEDS: PIPERACILLIN/TAZOBACTAM 3.375 G in DEXTROSE 5% WATER 50 ML IV SCH ×3 (06:19→21:17)
[2022-05-10] MEDS: SODIUM CHLORIDE 0.9% INJ 3ML FLUSH IVF SCH ×3 (06:20→21:18)
[2022-05-10] MEDS: MIDODRINE HCL 5MG TABLET PO SCH ×3 (06:20→21:18)
[2022-05-10 06:54] LABS: CHLORIDE 100 mEq/L (98-107)
[2022-05-10 09:17] LABS: BG BASE EXCESS 11.2 mmol/L (-2.0-2.0); BG CARBOXYHEMOGLOBIN 0.9 % (0.5-1.5); BG DEOXYHEMOGLOBIN 4.3 % (0.0-5.0); BG FRACTION INSPIRED OXYGEN 50; BG HCO3 ACT 37.9 mmol/L (22.0-26.0); BG METHEMOGLOBIN 0.3 % (0.0-1.5); BG OXYGEN SATURATION 95.6 % (92.0-98.5); BG OXYHEMOGLOBIN 94.5 % (94.0-97.0); BG PCO2 55.4 mmHg (35.0-45.0); BG PH 7.453 (7.350-7.450); BG PO2 75.7 mmHg (75.0-100.0); BG SAMPLE SITE LEFT RADIAL; BG TOTAL HEMOGLOBIN 17.3 g/dL (12.0-18.0); BG VENT MODE VENT - AC
[2022-05-10] MEDS: FLUOXETINE HCL 20MG CAPSULE NG SCH (10:07)
[2022-05-10] MEDS: SPIRONOLACTONE 25MG TABLET NG SCH (10:07)
[2022-05-10] MEDS: FERROUS SULFATE 325MG TABLET PO SCH ×3 (10:07→17:40)
[2022-05-10] MEDS: DOCUSATE SODIUM SUGAR FREE 100MG/10ML UDC NG SCH (10:07)
[2022-05-10] MEDS: CARVEDILOL 3.125 MG TABLET PO SCH (10:08)
[2022-05-10] MEDS: FAMOTIDINE 20MG/2ML VIAL IV SCH ×2 (10:08→21:17)
[2022-05-10] MEDS: DOPAMINE 400MG/250ML PREMIX 250 ML IV PRN (10:37)
[2022-05-10] MEDS ORDERED: KCL 10MEQ/50ML PREMIX 50 ML IV NR (12:30)
[2022-05-10] MEDS ORDERED: LEVETIRACETAM 500MG in SODIUM CHLORIDE 0.9% 100ML IV NR (13:00)
[2022-05-10] MEDS: LEVETIRACETAM 500MG PREMIX 100 ML IV SCH (21:17)
[2022-05-11] VITALS (59 sets, daily range): BP systolic 98–132; BP diastolic 56–93
[2022-05-11] MEDS: FUROSEMIDE 40MG/4ML VIAL IVP SCH ×2 (00:11→12:39)
[2022-05-11] MEDS: IPRATROPIUM/ALBUTEROL 0.5-3(2.5)MG/3ML NEB HHN SCH ×4 (01:57→20:25)
[2022-05-11] MEDS: POLYVINYL ALCOHOL OPHTH DROPS 15ML BOTHEYE SCH ×4 (02:52→21:55)
[2022-05-11] MEDS: ENOXAPARIN 80MG/0.8ML SYR SUBCUT SCH ×2 (05:32→17:51)
[2022-05-11] MEDS: PIPERACILLIN/TAZOBACTAM 3.375 G in DEXTROSE 5% WATER 50 ML IV SCH ×3 (05:32→21:55)
[2022-05-11] MEDS: SODIUM CHLORIDE 0.9% INJ 3ML FLUSH IVF SCH ×3 (05:34→21:55)
[2022-05-11 06:01] LABS: BASOPHILS % 0.3 % (0.0-2.0); EOSINOPHILS % 2.3 % (0.0-5.0); HEMATOCRIT. 48.8 % (42.0-52.0); HEMOGLOBIN. 15.4 g/dL (14.0-18.0); LYMPHOCYTES % 14.9 % (20.0-50.0); MEAN CORPUSCULAR HEMOGLOBIN 27.6 pg (28.0-32.0); MEAN CORPUSCULAR VOLUME 87.6 fL (80.0-94.0); MEAN PLATELET VOLUME 9.4 fl (7.4-10.4); MONOCYTES % 6.8 % (2.0-8.0); NEUTROPHILS % 75.7 % (40.0-76.0); PLATELET 334 x1000/uL (130-400); RED BLOOD CELL COUNT 5.57 mill/uL (4.7-6.1); RED CELL DISTRIBUTION WIDTH 18.8 % (11.6-14.6)
[2022-05-11] MEDS: MIDODRINE HCL 5MG TABLET PO SCH ×3 (06:25→21:55)
[2022-05-11 06:29] LABS: CHLORIDE 99 mEq/L (98-107)
[2022-05-11] MEDS: DOCUSATE SODIUM SUGAR FREE 100MG/10ML UDC NG SCH (08:44)
[2022-05-11] MEDS: FLUOXETINE HCL 20MG CAPSULE NG SCH (08:44)
[2022-05-11] MEDS: FERROUS SULFATE 325MG TABLET PO SCH ×3 (08:44→17:51)
[2022-05-11] MEDS: LEVETIRACETAM 500MG PREMIX 100 ML IV SCH ×2 (08:44→21:55)
[2022-05-11] MEDS: FAMOTIDINE 20MG/2ML VIAL IV SCH ×2 (08:45→21:55)
[2022-05-11] MEDS: SPIRONOLACTONE 25MG TABLET NG SCH (08:45)
[2022-05-11 10:45] LABS: BG BASE EXCESS 11.9 mmol/L (-2.0-2.0); BG FRACTION INSPIRED OXYGEN 50; BG HCO3 ACT 38.6 mmol/L (22.0-26.0); BG METHEMOGLOBIN 0.4 % (0.0-1.5); BG OXYHEMOGLOBIN 96.6 % (94.0-97.0); BG PCO2 56.5 mmHg (35.0-45.0); BG PH 7.452 (7.350-7.450); BG PO2 102.3 mmHg (75.0-100.0); BG SAMPLE SITE LEFT RADIAL; BG TOTAL HEMOGLOBIN 16.1 g/dL (12.0-18.0); BG VENT MODE VENT - AC
[2022-05-11] MEDS ORDERED: AMIODARONE HCL 900 MG in DEXT 5% WATER 482 ML IV SCH (11:00)
[2022-05-11] MEDS: AMIODARONE HCL 900 MG in DEXT 5% WATER 482 ML IV PRN (12:40)
[2022-05-12] VITALS (92 sets, daily range): BP systolic 98–164; BP diastolic 62–118
[2022-05-12] MEDS: FUROSEMIDE 40MG/4ML VIAL IVP SCH ×3 (00:43→23:45)
[2022-05-12] MEDS: IPRATROPIUM/ALBUTEROL 0.5-3(2.5)MG/3ML NEB HHN SCH ×4 (02:22→21:00)
[2022-05-12] MEDS: POLYVINYL ALCOHOL OPHTH DROPS 15ML BOTHEYE SCH ×4 (03:00→21:00)
[2022-05-12] MEDS: SODIUM CHLORIDE 0.9% INJ 3ML FLUSH IVF SCH ×3 (06:15→21:03)
[2022-05-12] MEDS: ENOXAPARIN 80MG/0.8ML SYR SUBCUT SCH ×2 (06:15→17:39)
[2022-05-12] MEDS: MIDODRINE HCL 5MG TABLET PO SCH ×3 (06:15→21:03)
[2022-05-12] MEDS: PIPERACILLIN/TAZOBACTAM 3.375 G in DEXTROSE 5% WATER 50 ML IV SCH ×2 (06:15→13:35)
[2022-05-12 06:24] LABS: BASOPHILS % 0.2 % (0.0-2.0); EOSINOPHILS % 2.5 % (0.0-5.0); HEMATOCRIT. 48.8 % (42.0-52.0); HEMOGLOBIN. 15.2 g/dL (14.0-18.0); MEAN CORPUSCULAR HEMOGLOBIN 27.4 pg (28.0-32.0); MEAN CORPUSCULAR VOLUME 87.6 fL (80.0-94.0); MEAN PLATELET VOLUME 9.6 fl (7.4-10.4); MONOCYTES % 6.5 % (2.0-8.0); NEUTROPHILS % 77.8 % (40.0-76.0); PLATELET 345 x1000/uL (130-400); RED BLOOD CELL COUNT 5.57 mill/uL (4.7-6.1)
[2022-05-12 07:22] LABS: PHOSPHORUS 3.6 mg/dL (2.5-4.9)
[2022-05-12] MEDS: FLUOXETINE HCL 20MG CAPSULE NG SCH (08:46)
[2022-05-12] MEDS: SPIRONOLACTONE 25MG TABLET NG SCH (08:46)
[2022-05-12] MEDS: FAMOTIDINE 20MG/2ML VIAL IV SCH ×2 (08:46→21:01)
[2022-05-12] MEDS: FERROUS SULFATE 325MG TABLET PO SCH ×3 (08:46→17:39)
[2022-05-12] MEDS: DOCUSATE SODIUM SUGAR FREE 100MG/10ML UDC NG SCH (08:46)
[2022-05-12] MEDS: LEVETIRACETAM 500MG PREMIX 100 ML IV SCH ×2 (08:48→21:00)
[2022-05-12] MEDS ORDERED: AMIODARONE HCL 900 MG in DEXT 5% WATER 482 ML IV SCH (10:30)
[2022-05-12] MEDS: AMIODARONE HCL 200 MG TABLET NG SCH (17:41)
[2022-05-13] VITALS (87 sets, daily range): BP systolic 86–156; BP diastolic 53–112
[2022-05-13] MEDS: IPRATROPIUM/ALBUTEROL 0.5-3(2.5)MG/3ML NEB HHN SCH ×4 (01:08→20:27)
[2022-05-13] MEDS: POLYVINYL ALCOHOL OPHTH DROPS 15ML BOTHEYE SCH ×4 (02:05→21:42)
[2022-05-13] MEDS: SODIUM CHLORIDE 0.9% INJ 3ML FLUSH IVF SCH ×3 (05:19→21:42)
[2022-05-13] MEDS: ENOXAPARIN 80MG/0.8ML SYR SUBCUT SCH ×2 (05:28→17:32)
[2022-05-13] MEDS: AMIODARONE HCL 200 MG TABLET NG SCH ×3 (05:28→21:41)
[2022-05-13] MEDS: MIDODRINE HCL 5MG TABLET PO SCH ×3 (05:29→21:50)
[2022-05-13 05:49] LABS: BASOPHILS % 0.3 % (0.0-2.0); EOSINOPHILS % 2.9 % (0.0-5.0); HEMATOCRIT. 51.5 % (42.0-52.0); HEMOGLOBIN. 16.1 g/dL (14.0-18.0); LYMPHOCYTES % 16.1 % (20.0-50.0); MEAN CORPUSCULAR HEMOGLOBIN 27.3 pg (28.0-32.0); MEAN CORPUSCULAR VOLUME 87.6 fL (80.0-94.0); MEAN PLATELET VOLUME 9.4 fl (7.4-10.4); NEUTROPHILS % 70.7 % (40.0-76.0); PLATELET 387 x1000/uL (130-400); RED BLOOD CELL COUNT 5.88 mill/uL (4.7-6.1); RED CELL DISTRIBUTION WIDTH 18.9 % (11.6-14.6)
[2022-05-13 09:15] LABS: BG BASE EXCESS 10.5 mmol/L (-2.0-2.0); BG FRACTION INSPIRED OXYGEN 80; BG HCO3 ACT 37.2 mmol/L (22.0-26.0); BG METHEMOGLOBIN 0.4 % (0.0-1.5); BG OXYHEMOGLOBIN 95.6 % (94.0-97.0); BG PCO2 55.7 mmHg (35.0-45.0); BG PH 7.442 (7.350-7.450); BG PO2 92.2 mmHg (75.0-100.0); BG SAMPLE SITE LEFT RADIAL; BG TOTAL HEMOGLOBIN 16.7 g/dL (12.0-18.0); BG TOTAL RESPIRATORY RATE 21 b/min; BG VENT MODE VENT - AC
[2022-05-13] MEDS: FLUOXETINE HCL 20MG CAPSULE NG SCH (09:15)
[2022-05-13] MEDS: SPIRONOLACTONE 25MG TABLET NG SCH (09:15)
[2022-05-13] MEDS: FERROUS SULFATE 325MG TABLET PO SCH ×3 (09:15→17:32)
[2022-05-13] MEDS: FAMOTIDINE 20MG/2ML VIAL IV SCH ×2 (09:16→21:41)
[2022-05-13] MEDS: DOCUSATE SODIUM SUGAR FREE 100MG/10ML UDC NG SCH (09:18)
[2022-05-13] MEDS: LEVETIRACETAM 500MG PREMIX 100 ML IV SCH ×2 (09:18→21:41)
[2022-05-13] MEDS: FUROSEMIDE 40MG/4ML VIAL IVP SCH (12:46)
[2022-05-13] MEDS: DOPAMINE 400MG/250ML PREMIX 250 ML IV PRN (19:11)
[2022-05-14] VITALS (52 sets, daily range): BP systolic 86–142; BP diastolic 49–107
[2022-05-14] MEDS: IPRATROPIUM/ALBUTEROL 0.5-3(2.5)MG/3ML NEB HHN SCH ×2 (01:17→08:52)
[2022-05-14] MEDS: FUROSEMIDE 40MG/4ML VIAL IVP SCH ×2 (01:53→11:44)
[2022-05-14] MEDS: POLYVINYL ALCOHOL OPHTH DROPS 15ML BOTHEYE SCH ×4 (03:00→21:00)
[2022-05-14] MEDS: MIDODRINE HCL 5MG TABLET PO SCH ×3 (06:03→22:00)
[2022-05-14] MEDS: SODIUM CHLORIDE 0.9% INJ 3ML FLUSH IVF SCH ×3 (06:03→22:23)
[2022-05-14] MEDS: ENOXAPARIN 80MG/0.8ML SYR SUBCUT SCH (06:03)
[2022-05-14] MEDS: DOCUSATE SODIUM SUGAR FREE 100MG/10ML UDC NG SCH (08:31)
[2022-05-14] MEDS: FAMOTIDINE 20MG/2ML VIAL IV SCH ×2 (08:32→21:00)
[2022-05-14] MEDS: FLUOXETINE HCL 20MG CAPSULE NG SCH (08:32)
[2022-05-14] MEDS: SPIRONOLACTONE 25MG TABLET NG SCH (08:32)
[2022-05-14] MEDS: AMIODARONE HCL 200 MG TABLET NG SCH (08:32)
[2022-05-14] MEDS: LEVETIRACETAM 500MG PREMIX 100 ML IV SCH ×2 (08:33→21:00)
[2022-05-14] MEDS: FERROUS SULFATE 325MG TABLET PO SCH ×2 (08:33→13:20)
[2022-05-14 08:54] LABS: BG BASE EXCESS 11.9 mmol/L (-2.0-2.0); BG DEOXYHEMOGLOBIN 13.4 % (0.0-5.0); BG FRACTION INSPIRED OXYGEN 80; BG HCO3 ACT 38.9 mmol/L (22.0-26.0); BG OXYGEN SATURATION 86.5 % (92.0-98.5); BG OXYHEMOGLOBIN 85.6 % (94.0-97.0); BG PCO2 58.5 mmHg (35.0-45.0); BG PH 7.441 (7.350-7.450); BG PO2 51.3 mmHg (75.0-100.0); BG SAMPLE SITE LEFT RADIAL; BG TOTAL HEMOGLOBIN 16.4 g/dL (12.0-18.0); BG TOTAL RESPIRATORY RATE 20 b/min; BG VENT MODE VENT - AC
[2022-05-14 10:36] LABS: BASOPHILS % 0.2 % (0.0-2.0); EOSINOPHILS % 1.6 % (0.0-5.0); HEMATOCRIT. 48.1 % (42.0-52.0); HEMOGLOBIN. 15.3 g/dL (14.0-18.0); LYMPHOCYTES % 8.5 % (20.0-50.0); MEAN CORPUSCULAR VOLUME 87.8 fL (80.0-94.0); MONOCYTES % 7.7 % (2.0-8.0); PLATELET 426 x1000/uL (130-400); RED BLOOD CELL COUNT 5.47 mill/uL (4.7-6.1); RED CELL DISTRIBUTION WIDTH 18.8 % (11.6-14.6)
[2022-05-14] MEDS ORDERED: SODIUM CHLORIDE 3% FOR INH 15ML VIAL NEB INH SCH (11:00)
[2022-05-14] MEDS ORDERED: ALBUTEROL (0.083%) 2.5MG/3ML NEB HHN SCH (12:00)
[2022-05-14] MEDS ORDERED: MORPHINE SULFATE 250 MG in DEXT 5% WATER 225 ML IV PRN (12:45)
[2022-05-14] MEDS ORDERED: ENOXAPARIN 80MG/0.8ML SYR SUBCUT SCH (18:00)
[2022-05-15] VITALS: BP 86/48
[2022-05-15] MEDS: FUROSEMIDE 40MG/4ML VIAL IVP SCH
[2022-05-15] MEDS: POLYVINYL ALCOHOL OPHTH DROPS 15ML BOTHEYE SCH (03:00)
[2022-05-15 04:00] VITALS: BP 95/52
[2022-05-15] MEDS: MIDODRINE HCL 5MG TABLET PO SCH (05:35)
[2022-05-15] MEDS: SODIUM CHLORIDE 0.9% INJ 3ML FLUSH IVF SCH (05:36)
[2022-05-15 08:00] VITALS: BP 93/57
[2022-05-15] MEDS ORDERED: MORPHINE SULFATE 250 MG in DEXT 5% WATER 225 ML IV PRN (11:45)
== END 2022-05-15 13:55 | DRG 207 ==
LOC: ER 12:11 → MICUSO 19:38 → EDBEDREQ 19:57 → EDBEDREQTM 19:57 → MICUNO 04-27 08:40 → 5EST 05-03 19:39 → CVICU 05-06 03:00 → 6EST 05-14 17:20
PROVIDERS: ADMIT Internal Medicine; ATTEND Internal Medicine
PROC: 5A1955Z Respiratory Ventilation, Greater than 96 Consecutive Hours (ICD-10-PCS; principal; 2022-04-26)
PROC: 0BH17EZ Insertion of Endotracheal Airway into Trachea, Via Natural or Artificial Opening (ICD-10-PCS; 2022-04-26)
PROC: 02HV33Z Insertion of Infusion Device into Superior Vena Cava, Percutaneous Approach (ICD-10-PCS; 2022-04-29)
PROC: B548ZZA Ultrasonography of Superior Vena Cava, Guidance (ICD-10-PCS; 2022-04-29)
PROC: 5A09457 Assistance with Respiratory Ventilation, 24-96 Consecutive Hours, Continuous Positive Airway Pressure (ICD-10-PCS; 2022-05-02)
PROC: 5A1221J Performance of Cardiac Output, Continuous, Automated (ICD-10-PCS; 2022-05-06)
PROC: 5A12012 Performance of Cardiac Output, Single, Manual (ICD-10-PCS; 2022-05-06)
PROC: 4A10X4Z Monitoring of Central Nervous Electrical Activity, External Approach (ICD-10-PCS; 2022-05-07)
DX: J96.21 Acute and chronic respiratory failure with hypoxia (principal); I50.23 Acute on chronic systolic (congestive) heart failure; I48.92 Unspecified atrial flutter; E46 Unspecified protein-calorie malnutrition; E87.4 Mixed disorder of acid-base balance; F84.0 Autistic disorder; G93.40 Encephalopathy, unspecified; I42.0 Dilated cardiomyopathy; G93.1 Anoxic brain damage, not elsewhere classified; I47.21 Torsades de pointes; J98.11 Atelectasis; Z68.1 Body mass index [BMI] 19.9 or less, adult; I49.01 Ventricular fibrillation; J96.22 Acute and chronic respiratory failure with hypercapnia; I11.0 Hypertensive heart disease with heart failure; Z66 Do not resuscitate; J44.9 Chronic obstructive pulmonary disease, unspecified; K74.60 Unspecified cirrhosis of liver; E87.6 Hypokalemia; F17.200 Nicotine dependence, unspecified, uncomplicated; F20.9 Schizophrenia, unspecified; F79 Unspecified intellectual disabilities; Z51.5 Encounter for palliative care; N28.9 Disorder of kidney and ureter, unspecified; I48.0 Paroxysmal atrial fibrillation; I07.1 Rheumatic tricuspid insufficiency; E88.09 Other disorders of plasma-protein metabolism, not elsewhere classified; Z20.822 Contact with and (suspected) exposure to COVID-19; T46.0X5A Adverse effect of cardiac-stimulant glycosides and drugs of similar action, initial encounter; I95.9 Hypotension, unspecified; E83.51 Hypocalcemia; G40.909 Epilepsy, unspecified, not intractable, without status epilepticus; Z79.01 Long term (current) use of anticoagulants; Z86.73 Personal history of transient ischemic attack (TIA), and cerebral infarction without residual deficits; Z86.711 Personal history of pulmonary embolism; Z86.74 Personal history of sudden cardiac arrest; Z78.1 Physical restraint status; Z79.899 Other long term (current) drug therapy
CPT/HCPCS: 31500; 36415; 36573; 36600; 71045; 76604; 80048; 80053; 80162; 80305; 81003; 82306; 82330; 82375; 82805; 82962; 83605; 83735; 83880; 83970; 84100; 84132; 84145; 84443; 84478; 84484; 85025; 87070; 87077; 87186; 87426; 92950; 93005; 93306; 94002; 94003; 94640; 94660; 95816; 99291; A6261; C1725; C9113; C9803; J0282; J0330; J1120; J1160; J1200; J1250; J1265; J1650; J1940; J1953; J2060; J2250; J2370; J2405; J2543; J2704; J3010; J3370; J3475; J3480; J3490; J7030; J7050; J7060; A5200